=== PATIENT | female | born 1990 | race American Indian/Alaskan Native ===

== ENCOUNTER 2021-07-31 00:32 | Inpatient (IN) | payer SELFPAY ==
--- NOTE | 2021-07-31 01:47 | Emergency Department Report ---
ED Shortness of Breath HPI - General Chief Complaint: Dyspnea/Respdistress Stated Complaint: SOB Time Seen by Provider: 07/31/21 01:43 Source: patient Mode of arrival: Ambulatory Limitations: No Limitations - History of Present Illness Initial Comments: Patient is 31 years old female with no significant past medical history. Patient presented to the ER complaining of shortness of breath and cough and palpitation for the last 3 days. Patient denied any chest pain. She reported chills but no fever. Patient stated that she is not being vaccinated against COVID-19. Complaint: shortness of breath, cough - Related Data Allergies Allergy/AdvReac Type Severity Reaction Status Date / Time No Known Allergies Allergy Unverified 07/31/21 01:39 ED Review of Systems ROS: Stated complaint: SOB Other details as noted in HPI Comment: All other systems reviewed and negative Constitutional: chills. denies: fever Respiratory: cough, shortness of breath, SOB with exertion, SOB at rest. denies: orthopnea, wheezing Cardiovascular: palpitations. denies: chest pain Gastrointestinal: denies: abdominal pain, nausea, vomiting, diarrhea, constipation, hematemesis, melena Musculoskeletal: denies: back pain Neurological: denies: headache, weakness, numbness, paresthesias, confusion, abnormal gait ED Past Medical Hx - Past Medical History Previous Medical History?: No - Surgical History Past Surgical History?: No ED Physical Exam - General Limitations: No Limitations General appearance: alert, in no apparent distress - Head Head exam: Present: atraumatic, normocephalic, normal inspection - Eye Eye exam: Present: normal appearance, PERRL - ENT ENT exam: Present: normal exam, normal orophraynx, mucous membranes moist - Neck Neck exam: Present: normal inspection, full ROM. Absent: tenderness, meningismus - Respiratory Respiratory exam: Present: normal lung sounds bilaterally - Cardiovascular Cardiovascular Exam: Present: regular rate, normal rhythm, normal heart sounds - GI/Abdominal GI/Abdominal exam: Present: soft, normal bowel sounds. Absent: distended, tenderness, guarding, rebound, rigid, organomegaly, mass, bruit, pulsatile mass, hernia - Extremities Exam Extremities exam: Present: normal inspection, full ROM, normal capillary refill. Absent: tenderness - Back Exam Back exam: Present: normal inspection, full ROM. Absent: CVA tenderness (R), CVA tenderness (L) - Neurological Exam Neurological exam: Present: alert, oriented X3, CN II-XII intact, normal gait, reflexes normal. Absent: motor sensory deficit - Psychiatric Psychiatric exam: Present: normal mood - Skin Skin exam: Present: warm, intact, normal color ED Course Vital Signs 07/31/21 07/31/21 01:42 03:13 Temperature 98 F Pulse Rate 95 H Respiratory 18 18 Rate Blood Pressure 117/87 [Right] O2 Sat by Pulse 95 Oximetry - Chest Tube Chest Tube Location: fifth interspace Chest Tube Procedure: betadine prep, sterile drapes applied, sterile dressing applied Anesthesia: 1% Lidocaine [place] of Air [place]: Yes Number of Attempts: 1 Tube Drainage: see nurses notes Tube Sutured to Skin: Yes Post Procedure CXR?: Yes ED Medical Decision Making - Lab Data Result diagrams: 07/31/21 01:49 07/31/21 01:49 - Radiology Data Radiology results: report reviewed - Medical Decision Making Patient is 31 years old female with no significant past medical history. Patient presented to the ER complaining of shortness of breath and cough and palpitation for the last 3 days. Patient denied any chest pain. She reported chills but no fever. Patient stated that she is not being vaccinated against COVID-19. Chest x-ray showed a right-sided tension pneumothorax. I immediately placed chest tube with resolution of the pneumothorax. Patient stated that she is feeling much better. Patient tolerated the procedure well with no complication. I discussed the patient with Dr. Chery, he agreed to admit the patient to medical service. Critical Care Time: Yes Critical care time in (mins) excluding proc time.: 30 Critical care attestation.: If time is entered above; I have spent that time in minutes in the direct care of this critically ill patient, excluding procedure time. ED Disposition Clinical Impression: Tension pneumothorax, spontaneous, Acute chest pain Disposition: ADMITTED INPATIENT Is pt being admited?: Yes Condition: Stable Instructions: Chest Pain (ED)
[2021-07-31 02:12] LABS: Basophils % (Auto) 0.2 % (0.0-1.8); Eosinophils % (Auto) 0.1 % (0.0-4.3); Hematocrit 37.1 % (30.3-42.9); Hemoglobin 12.3 gm/dl (10.1-14.3); Lymphocytes # (Auto) 2.4 K/mm3 (1.2-5.4); Lymphocytes % (Auto) 15.9 % (13.4-35.0); Mean Corpuscular HGB Conc 33 % (30-34); Mean Corpuscular Volume 75 fl (79-97); Monocytes # (Auto) 0.8 K/mm3 (0.0-0.8); Monocytes % (Auto) 5.3 % (0.0-7.3); Platelet Count 413 K/mm3 (140-440); Red Blood Count 4.93 M/mm3 (3.65-5.03); Red Cell Distribution Width 17.9 % (13.2-15.2)
[2021-07-31 02:21] LABS: BUN/Creatinine Ratio 10; Blood Urea Nitrogen 8 mg/dL (7-17); Calcium 9.7 mg/dL (8.4-10.2); Hemolysis Index 0
[2021-07-31] MEDS ORDERED: LORazepam 2 MG/ML VIAL IV ONE (02:59)
[2021-07-31] MEDS ORDERED: MORPHINE 4 MG/1 ML INJ IV ONE (02:59)
[2021-07-31] MEDS ORDERED: ONDANSETRON 4 MG/2 ML INJ IV ONE (02:59)
[2021-07-31] MEDS ORDERED: SODIUM CHLORIDE 0.9% 1000 ML 1,000 ML IV ONE (02:59)
--- NOTE | 2021-07-31 02:59 | XRay Report ---
XR chest routine 2V INDICATION / CLINICAL INFORMATION: SOB. COMPARISON: None available. FINDINGS: SUPPORT DEVICES: None. HEART /PULMONARY VASCULATURE: No significant abnormality. LUNGS / PLEURA: Large right pneumothorax with complete collapse of the right lung. The trachea is min imally deviated to the left, though this is accentuated by patient rotation. ADDITIONAL FINDINGS: No significant additional findings. IMPRESSION: Large right pneumothorax with complete collapse of the right lung. Minimal tracheal deviation to the left is concerning for tension phenomenon. Findings were discussed with Dr. Reddy by phone on 07/31/2021 at 1:54 AM Signer Name: Dany Handley MD Signed: 07/31/2021 2:54 AM Workstation Name: [id number]
[2021-07-31] MEDS ORDERED: LIDOCAINE (2%) 20 MG/1 ML VIAL 20 ML MDV INFILTRATI ONE (03:19)
[2021-07-31 03:50] LABS: INR 1.05 (0.87-1.13)
[2021-07-31] MEDS ORDERED: MIDAZOLAM 5 MG/5 ML INJ MDV IV NR ×2 (04:00)
--- NOTE | 2021-07-31 04:12 | XRay Report ---
XR chest 1V ap INDICATION / CLINICAL INFORMATION: Chest tube placement, pneumothorax. COMPARISON: Radiograph from earlier same day. FINDINGS: SUPPORT DEVICES: Interval placement of right sided chest tube. LUNGS / PLEURA: Significant improvement in right pneumothorax. Tiny right apical pneumothorax remains . There is airspace opacity within the right lung base, may reflect atelectasis, edema, or pneumonia. Signer Name: Dany Handley MD Signed: 07/31/2021 4:08 AM Workstation Name: [id number]
--- NOTE | 2021-07-31 04:49 | History and Physical Report ---
History of Present Illness Date of examination: 07/31/21 Date of admission: 07/31/21 Chief complaint: shortness of breath History of present illness: This is a 31 years old female seen in the ED. She presented to the ER with chief complaint of shortness of breath, cough, and palpitation for the last 3 days. Patient admits shortness of breath, anxiety, but denied chest pain. Patient stated that she is not being vaccinated against COVID-19. Past History Past Medical History: No medical history Past Surgical History: No surgical history Social history: lives with family, full code. denies: smoking, alcohol abuse, prescription drug abuse, IV drug use Family history: no significant family history Medications and Allergies Allergies Allergy/AdvReac Type Severity Reaction Status Date / Time No Known Allergies Allergy Unverified 07/31/21 01:39 Active Meds: Active Medications Midazolam HCl (Midazolam 5 Mg/5 Ml Inj Mdv) 3 mg IV ONCE NR Stop: 07/31/21 23:45 Review of Systems Constitutional: fatigue, weakness Ears, nose, mouth and throat: no epistaxis, no bleeding gums Cardiovascular: rapid/irregular heart beat, shortness of breath Respiratory: shortness of breath, dyspnea on exertion, other (Shortness of breath requiring oxygen) Gastrointestinal: no BRBPR, no melena Rectal: no hemorrhoids Integumentary: no rash, no pruritis Psychiatric: anxiety Hematologic/Lymphatic: no easy bruising, no easy bleeding Exam - Constitutional Vitals: Temp Pulse Resp BP Pulse Ox 98 F 107 H 25 H 133/82 100 07/31/21 01:42 07/31/21 04:15 07/31/21 04:15 07/31/21 04:15 07/31/21 04:00 General appearance: Present: mild distress, well-nourished - EENT Eyes: Present: PERRL ENT: hearing intact, clear oral mucosa - Neck Neck: Present: supple, normal ROM - Respiratory Respiratory effort: normal Respiratory: bilateral: CTA - Cardiovascular Heart Sounds: Present: S1 & S2. Absent: rub, click - Extremities Extremities: pulses symmetrical, No edema Peripheral Pulses: within normal limits - Abdominal General gastrointestinal: Present: soft, non-tender, non-distended, normal bowel sounds Female genitourinary: Present: normal - Integumentary Integumentary: Present: clear, warm, dry - Musculoskeletal Musculoskeletal: gait normal, strength equal bilaterally - Psychiatric Psychiatric: appropriate mood/affect, intact judgment & insight, cooperative - Neurologic Neurologic: CNII-XII intact, moves all extremities - Allied Health Allied health notes reviewed: nursing Results - Labs CBC & Chem 7: 07/31/21 01:49 07/31/21 01:49 Labs: Abnormal lab results 07/31/21 07/31/21 Range/Units 01:49 01:49 WBC 14.9 H (4.5-11.0) K/mm3 MCV 75 L (79-97) fl MCH 25 L (28-32) pg RDW 17.9 H (13.2-15.2) % Seg Neutrophils % 78.5 H (40.0-70.0) % Seg Neutrophils # 11.7 H (1.8-7.7) K/mm3 Sodium 134 L (137-145) mmol/L Carbon Dioxide 21 L (22-30) mmol/L Glucose 106 H (65-100) mg/dL Assessment and Plan - Patient Problems (1) Tension pneumothorax, spontaneous Current Visit: Yes Status: Acute Plan to address problem: Patient came to ED with shortness of breath requiring oxygen Chest x-ray showed large right pneumothorax with complete collapse of the right lung with minimal tracheal deviation to the left. Right chest tube placed-Repeat checks x-ray done post chest tube placement showed a significant improvement in right pneumothorax. And he also showed opacity within the right lung base may reflect atelectasis, edema, or pneumonia. Continue chest tube care, respiratory care, and monitor ABG (2) Acute chest pain Current Visit: Yes Status: Acute Plan to address problem: Acute chest pain secondary to right lung pneumothorax Condition has improved post chest tube placement Pain management as needed (3) Shortness of breath Current Visit: Yes Status: Acute Plan to address problem: Continue respiratory care Bronchodilator and oxygen supplement (4) Acute respiratory failure with hypoxia Current Visit: Yes Status: Acute Plan to address problem: Secondary to pneumothorax/pneumonia Telecasting Engineer consultfollow-up with plan of care Empiric antibiotic and oxygen supplement (5) Pneumonia involving right lung Current Visit: Yes Status: Acute Plan to address problem: Chest x-ray shows right lung opacity/edema Empiric antibiotic Telecasting Engineer is consulted (6) Leukocytosis (leucocytosis) Current Visit: Yes Status: Acute Plan to address problem: monitor WBC Blood culture Continue abx therapy (7) DVT prophylaxis Current Visit: Yes Status: Acute Plan to address problem: Subcutaneous Lovenox
[2021-07-31] MEDS ORDERED: METOCLOPRAMIDE 10 MG/2 ML INJ IV PRN (05:19)
[2021-07-31] MEDS ORDERED: NALOXONE 0.4 MG/1 ML INJ IV PRN (05:19)
[2021-07-31] MEDS ORDERED: ALUM-MAG HYDROXIDE-SIMETHICONE 200-200-20MG/5ML ORAL LIQD 30 ML PO PRN (05:19)
[2021-07-31] MEDS ORDERED: MAGNESIUM HYDROXIDE (MOM) ORAL LIQD UDC PO PRN (05:19)
[2021-07-31] MEDS ORDERED: SENNOSIDES 8.6 MG TAB PO PRN (05:19)
[2021-07-31] MEDS ORDERED: ACETAMINOPHEN 325 MG TAB PO PRN (05:19)
[2021-07-31] MEDS ORDERED: ONDANSETRON 4 MG/2 ML INJ IV PRN (05:19)
--- NOTE | 2021-07-31 07:51 | Progress Note ---
Assessment and Plan Assessment and plan: --Rt. Tension pneumothorax, spontaneous Current Visit: Yes Status: Acute Chest x-ray showed large right pneumothorax with complete collapse of the right lung with minimal tracheal deviation to the left. Right chest tube placed-Repeat checks x-ray post chest tube placement showed a significant improvement in right pneumothorax. opacity within the right lung base may reflect atelectasis, edema, or pneumonia. Continue chest tube on continuous suction, pulmonary following --Acute chest pain Current Visit: Yes Status: Acute Due to right pneumothorax Significantly improved post chest tube placement Supportive care --Acute respiratory failure with hypoxia Current Visit: Yes Status: Acute Present on admission Due to right pneumothorax/pneumonia Slightly improved after chest tube placement Pulmonary consulted --Pneumonia involving right lung Current Visit: Yes Status: Acute Chest x-ray shows right lung opacity/edema/atelectasis Empiric antibiotic, follow cultures --Leukocytosis (leucocytosis) Current Visit: Yes Status: Acute monitor WBC, Blood culture Continue abx therapy -- DVT prophylaxis. Current Visit: Yes Status: Acute Subcutaneous Lovenox Consults and recommendations noted and appreciated We will closely monitor the patient and adjust the management as needed Plan of care reviewed with the patient and her nurse Brief history and daily hospital course: 31-year-old female patient was admitted with acute shortness of breath and chest pain noted to have right-sided tension pneumothorax patient received emergency right-sided chest tube placement connected to continuous suction, post chest tube chest x-ray revealed complete expansion of the lung Patient symptoms significantly improved. 07/31/2021; Patient is alert awake oriented very minimal chest pain no shortness of breath Right-sided chest tube in place on continuous suction, pulmonary following Recommend chest tube underwater seal after 24 hours. Continue empiric antibiotics for atelectasis/pneumonia on the right side Follow cultures History Interval history: I have seen and examined the patient in ER at the bedside awaiting room assignment Patient with right tension pneumothorax s/p chest tube placement under continuous suction Patient feels slightly better, mild shortness of breath and chest pain intermittent No overnight events noted by the nursing Hospitalist Physical - Constitutional Vitals: Temp Pulse Resp BP Pulse Ox 98 F 86 20 118/69 100 07/31/21 01:42 07/31/21 06:15 07/31/21 06:15 07/31/21 06:15 07/31/21 06:15 General appearance: Present: mild distress, well-nourished, other (Right-sided chest tube under continuous suction) - EENT Eyes: Present: PERRL, EOM intact - Neck Neck: Present: supple, normal ROM - Respiratory Respiratory effort: normal Respiratory: bilateral: diminished, negative: rales, rhonchi, wheezing - Cardiovascular Rhythm: regular Heart Sounds: Present: S1 & S2 - Extremities Extremities: no ischemia, No edema - Abdominal General gastrointestinal: soft, non-tender, non-distended, normal bowel sounds - Integumentary Integumentary: Present: clear, warm - Psychiatric Psychiatric: appropriate mood/affect, cooperative - Neurologic Neurologic: CNII-XII intact, moves all extremities Results - Labs CBC & Chem 7: 07/31/21 01:49 07/31/21 01:49 Labs: Laboratory Last Values WBC 14.9 K/mm3 (4.5-11.0) H 07/31/21 01:49 RBC 4.93 M/mm3 (3.65-5.03) 07/31/21 01:49 Hgb 12.3 gm/dl (10.1-14.3) 07/31/21 01:49 Hct 37.1 % (30.3-42.9) 07/31/21 01:49 MCV 75 fl (79-97) L 07/31/21 01:49 MCH 25 pg (28-32) L 07/31/21 01:49 MCHC 33 % (30-34) 07/31/21 01:49 RDW 17.9 % (13.2-15.2) H 07/31/21 01:49 Plt Count 413 K/mm3 (140-440) 07/31/21 01:49 Lymph % (Auto) 15.9 % (13.4-35.0) 07/31/21 01:49 [place] % (Auto) 5.3 % (0.0-7.3) 07/31/21 01:49 Eos % (Auto) 0.1 % (0.0-4.3) 07/31/21 01:49 Baso % (Auto) 0.2 % (0.0-1.8) 07/31/21 01:49 Lymph # (Auto) 2.4 K/mm3 (1.2-5.4) 07/31/21 01:49 [place] # (Auto) 0.8 K/mm3 (0.0-0.8) 07/31/21 01:49 Eos # (Auto) 0.0 K/mm3 (0.0-0.4) 07/31/21 01:49 Baso # (Auto) 0.0 K/mm3 (0.0-0.1) 07/31/21 01:49 Seg Neutrophils % 78.5 % (40.0-70.0) H 07/31/21 01:49 Seg Neutrophils # 11.7 K/mm3 (1.8-7.7) H 07/31/21 01:49 PT 14.2 Sec. (12.2-14.9) 07/31/21 03:19 INR 1.05 (0.87-1.13) 07/31/21 03:19 APTT 30.0 Sec. (24.2-36.6) 07/31/21 03:19 Sodium 134 mmol/L (137-145) L 07/31/21 01:49 Potassium 4.3 mmol/L (3.6-5.0) 07/31/21 01:49 Chloride 98.7 mmol/L (98-107) 07/31/21 01:49 Carbon Dioxide 21 mmol/L (22-30) L 07/31/21 01:49 Anion Gap 19 mmol/L 07/31/21 01:49 BUN 8 mg/dL (7-17) 07/31/21 01:49 Creatinine 0.8 mg/dL (0.6-1.2) 07/31/21 01:49 Estimated GFR > 60 ml/min 07/31/21 01:49 BUN/Creatinine Ratio 10 % 07/31/21 01:49 Glucose 106 mg/dL (65-100) H 07/31/21 01:49 Hemoglobin A1c 5.6 % (4-6) 07/31/21 01:49 Calcium 9.7 mg/dL (8.4-10.2) 07/31/21 01:49 HCG, Qual Negative (Negative) 07/31/21 01:49 Active Medications - Current Medications Current Medications: Generic Name Dose Route Start Last Admin Trade Name Freq PRN Reason Stop Dose Admin Acetaminophen 650 mg 07/31/21 05:19 Acetaminophen 325 Mg Tab PO Q4H PRN Pain MILD(1-3)/Fever >100.5/BOOTHE Al Hydrox/Mg Hydrox/Simethicone 30 ml 07/31/21 05:19 Alum-Mag Hydroxide-Simethicone [phone]/5ml Oral Liqd 30 Ml PO Q4H PRN Indigestion Enoxaparin Sodium 40 mg 07/31/21 10:00 Enoxaparin 40 Mg/0.4 Ml Inj SUB-Q QDAY GEGE Famotidine 20 mg 07/31/21 10:00 Famotidine 20 Mg/2 Ml Inj IV BID GEGE Magnesium Hydroxide 30 ml 07/31/21 05:19 Magnesium Hydroxide (Mom) Oral Liqd Udc PO Q4H PRN Constipation Metoclopramide HCl 10 mg 07/31/21 05:19 Metoclopramide 10 Mg/2 Ml Inj IV Q6H PRN Nausea And Vomiting Midazolam HCl 3 mg 07/31/21 04:00 07/31/21 04:00 Midazolam 5 Mg/5 Ml Inj Mdv IV 07/31/21 23:45 3 mg ONCE NR Administration Morphine Sulfate 2 mg 07/31/21 05:19 Morphine 2 Mg/1 Ml Inj IV Q4H PRN Pain, Moderate (4-6) Naloxone HCl 0.1 mg 07/31/21 05:19 Naloxone 0.4 Mg/1 Ml Inj IV Q2MIN PRN Res Rate </= 8 or 02 SAT < 92% Ondansetron HCl 4 mg 07/31/21 05:19 Ondansetron 4 Mg/2 Ml Inj IV Q8H PRN Nausea And Vomiting Oxycodone/Acetaminophen 1 tab 07/31/21 05:19 Oxycodone /Acetaminophen 5-325mg Tab PO Q6H PRN Pain, Moderate (4-6) Senna 8.6 mg 07/31/21 05:19 Sennosides 8.6 Mg Tab PO Q12HR PRN Constipation Sodium Chloride 10 ml 07/31/21 10:00 Sodium Chloride 0.9% 10 Ml Flush Syringe IV BID [facility]
[2021-07-31] MEDS: ENOXAPARIN 40 MG/0.4 ML INJ SUB-Q SCH (10:16)
[2021-07-31] MEDS: FAMOTIDINE 20 MG/2 ML INJ IV SCH ×3 (10:16→22:33)
--- NOTE | 2021-07-31 11:28 | Event Note ---
Date: 07/31/21 31 y/o [place] female, primary language is sami with 2 days of not being able to sleep or eat with shortness of breath. Denies any trauma, no pain with deep breaths. Per patient has never had PTX before nor has anyone in her family. Denies smoking or vaping. Found to have large right sided PTX with some mediastinal shift. Chest tube placed with full re-expansion on [id number] and continuous suction. Currently on oxygen with sats of 100 and overall feels better. still no exact cause as to why. Plan 1. after 24 hours of suction, place chest tube to water seal (remove suction) and repeat CXR in 4 hours. If lung up, clamp chest tube then repeat CXR in 2-4 hours. If lung remains up, can discontinue chest tube. Suggest obtaining CT of chest to evaluate lung parenchyma if lung remains inflated on water seal or after chest tube has been removed. 1st time spontaneous PTX does not require CT surgery eval but if reoccurs would need consultation.
[2021-07-31 14:09] LABS: Bacteria,Urine 1+ /HPF (Negative); Bilirubin,Urine NEG (Negative); Blood,Urine NEG (Negative); Color,Urine Yellow (Yellow); Mucus,Urine FEW /HPF; Protein,Urine <15 mg/dL mg/dL (Negative); Urobilinogen,Urine < 2.0 mg/dL (<2.0)
[2021-08-01 06:24] LABS: Basophils % (Auto) 0.2 % (0.0-1.8); Eosinophils # (Auto) 0.2 K/mm3 (0.0-0.4); Eosinophils % (Auto) 1.7 % (0.0-4.3); Hemoglobin 11.3 gm/dl (10.1-14.3); Lymphocytes # (Auto) 2.9 K/mm3 (1.2-5.4); Lymphocytes % (Auto) 24.7 % (13.4-35.0); Mean Corpuscular HGB Conc 32 % (30-34); Mean Corpuscular Volume 75 fl (79-97); Monocytes % (Auto) 8.1 % (0.0-7.3); Platelet Count 376 K/mm3 (140-440); Red Blood Count 4.64 M/mm3 (3.65-5.03); Red Cell Distribution Width 17.4 % (13.2-15.2)
[2021-08-01 06:48] LABS: Alanine Aminotransferase 8 units/L (7-56); Albumin 3.9 g/dL (3.9-5); BUN/Creatinine Ratio 15; Blood Urea Nitrogen 12 mg/dL (7-17); Hemolysis Index 4
[2021-08-01] MEDS: ENOXAPARIN 40 MG/0.4 ML INJ SUB-Q SCH (09:31)
[2021-08-01] MEDS: FAMOTIDINE 20 MG/2 ML INJ IV SCH ×2 (09:32→22:21)
--- NOTE | 2021-08-01 10:01 | Progress Note ---
Assessment and Plan Assessment and plan: --Rt. Tension pneumothorax, spontaneous Current Visit: Yes Status: Acute Chest x-ray showed large right pneumothorax with complete collapse of the right lung with minimal tracheal deviation to the left. Right chest tube placed-Repeat checks x-ray post chest tube placement showed a significant improvement in right pneumothorax. opacity within the right lung base may reflect atelectasis, edema, or pneumonia. Continue chest tube on continuous suction, pulmonary following --Acute chest pain Current Visit: Yes Status: Acute Due to right pneumothorax Significantly improved post chest tube placement Supportive care --Acute respiratory failure with hypoxia Current Visit: Yes Status: Acute Present on admission Due to right pneumothorax/pneumonia Slightly improved after chest tube placement Pulmonary consulted --Pneumonia involving right lung Current Visit: Yes Status: Acute Chest x-ray shows right lung opacity/edema/atelectasis Patient also has leukocytosis We will start empiric antibiotics, IV Rocephin and Zithromax Follow cultures --Leukocytosis (leucocytosis) Current Visit: Yes Status: Acute monitor WBC, Blood culture Started abx therapy -- DVT prophylaxis. Current Visit: Yes Status: Acute Subcutaneous Lovenox Consults and recommendations noted and appreciated We will closely monitor the patient and adjust the management as needed Plan of care reviewed with the patient and her nurse Brief history and daily hospital course: 31-year-old female patient was admitted with acute shortness of breath and chest pain noted to have right-sided tension pneumothorax patient received emergency right-sided chest tube placement connected to continuous suction, post chest tube chest x-ray revealed complete expansion of the lung Patient symptoms significantly improved. 07/31/2021; Patient is alert awake oriented very minimal chest pain no shortness of breath Right-sided chest tube in place on continuous suction, pulmonary following Recommend chest tube underwater seal after 24 hours. 08/01/2021; chest tube in place on continuous suction Patient complains of some insomnia, will order some Ambien as needed at night Patient has leukocytosis, opacity on chest x-ray atelectasis/ Will start empiric antibiotic Rocephin and Zithromax, check procalcitonin History Interval history: I have seen and examined the patient this morning at the bedside Patient's chart and medications reviewed Patient feels better complains of some insomnia Vital signs reviewed Hospitalist Physical - Constitutional Vitals: Temp Pulse Resp BP Pulse Ox 98.7 F 82 16 124/79 100 09/22/21 04:28 07/31/21 21:09 08/01/21 04:28 08/01/21 04:28 07/31/21 22:09 General appearance: Present: no acute distress, well-nourished, other (Right- sided chest tube under continuous suction) - EENT Eyes: Present: PERRL, EOM intact - Neck Neck: Present: supple, normal ROM - Respiratory Respiratory effort: normal Respiratory: right: diminished, negative: rales, rhonchi (Chest tube in place) - Cardiovascular Rhythm: regular Heart Sounds: Present: S1 & S2 - Extremities Extremities: no ischemia, No edema - Abdominal General gastrointestinal: soft, non-tender, non-distended, normal bowel sounds - Integumentary Integumentary: Present: clear, warm - Psychiatric Psychiatric: appropriate mood/affect, cooperative - Neurologic Neurologic: moves all extremities Results - Labs CBC & Chem 7: 08/01/21 06:00 08/01/21 06:00 Labs: Laboratory Last Values WBC 11.8 K/mm3 (4.5-11.0) H 08/01/21 06:00 RBC 4.64 M/mm3 (3.65-5.03) 08/01/21 06:00 Hgb 11.3 gm/dl (10.1-14.3) 08/01/21 06:00 Hct 35.0 % (30.3-42.9) 08/01/21 06:00 MCV 75 fl (79-97) L 08/01/21 06:00 MCH 24 pg (28-32) L 08/01/21 06:00 MCHC 32 % (30-34) 08/01/21 06:00 RDW 17.4 % (13.2-15.2) H 08/01/21 06:00 Plt Count 376 K/mm3 (140-440) 08/01/21 06:00 Lymph % (Auto) 24.7 % (13.4-35.0) 08/01/21 06:00 [place] % (Auto) 8.1 % (0.0-7.3) H 08/01/21 06:00 Eos % (Auto) 1.7 % (0.0-4.3) 08/01/21 06:00 Baso % (Auto) 0.2 % (0.0-1.8) 08/01/21 06:00 Lymph # (Auto) 2.9 K/mm3 (1.2-5.4) 08/01/21 06:00 [place] # (Auto) 1.0 K/mm3 (0.0-0.8) H 08/01/21 06:00 Eos # (Auto) 0.2 K/mm3 (0.0-0.4) 08/01/21 06:00 Baso # (Auto) 0.0 K/mm3 (0.0-0.1) 08/01/21 06:00 Seg Neutrophils % 65.3 % (40.0-70.0) 08/01/21 06:00 Seg Neutrophils # 7.7 K/mm3 (1.8-7.7) 08/01/21 06:00 PT 14.2 Sec. (12.2-14.9) 07/31/21 03:19 INR 1.05 (0.87-1.13) 07/31/21 03:19 APTT 30.0 Sec. (24.2-36.6) 07/31/21 03:19 Sodium 140 mmol/L (137-145) 08/01/21 06:00 Potassium 4.0 mmol/L (3.6-5.0) 08/01/21 06:00 Chloride 104.6 mmol/L (98-107) 08/01/21 06:00 Carbon Dioxide 23 mmol/L (22-30) 08/01/21 06:00 Anion Gap 16 mmol/L 08/01/21 06:00 BUN 12 mg/dL (7-17) 08/01/21 06:00 Creatinine 0.8 mg/dL (0.6-1.2) 08/01/21 06:00 Estimated GFR > 60 ml/min 08/01/21 06:00 BUN/Creatinine Ratio 15 % 08/01/21 06:00 Glucose 90 mg/dL (65-100) 08/01/21 06:00 Hemoglobin A1c 5.6 % (4-6) 07/31/21 01:49 Calcium 9.0 mg/dL (8.4-10.2) 08/01/21 06:00 Total Bilirubin 0.30 mg/dL (0.1-1.2) 08/01/21 06:00 AST 13 units/L (5-40) 08/01/21 06:00 ALT 8 units/L (7-56) 08/01/21 06:00 Alkaline Phosphatase 65 units/L (35-129) 08/01/21 06:00 Total Protein 7.8 g/dL (6.3-8.2) 08/01/21 06:00 Albumin 3.9 g/dL (3.9-5) 08/01/21 06:00 Albumin/Globulin Ratio 1.0 % 08/01/21 06:00 HCG, Qual Negative (Negative) 07/31/21 01:49 Urine Color Yellow (Yellow) 07/31/21 Unknown Urine Turbidity Slightly-cloudy (Clear) 07/31/21 Unknown Urine pH 5.0 (5.0-7.0) 07/31/21 Unknown Ur Specific [place] 1.009 (1.003-1.030) 07/31/21 Unknown Urine Protein <15 mg/dl mg/dL (Negative) 07/31/21 Unknown Urine Glucose (UA) Neg mg/dL (Negative) 07/31/21 Unknown Urine Ketones 20 mg/dL (Negative) 07/31/21 Unknown Urine Blood Neg (Negative) 07/31/21 Unknown Urine Nitrite Neg (Negative) 07/31/21 Unknown Urine Bilirubin Neg (Negative) 07/31/21 Unknown Urine Urobilinogen < 2.0 mg/dL (<2.0) 07/31/21 Unknown Ur Leukocyte Esterase Neg (Negative) 07/31/21 Unknown Urine WBC (Auto) 2.0 /HPF (0.0-6.0) 07/31/21 Unknown Urine RBC (Auto) 2.0 /HPF (0.0-6.0) 07/31/21 Unknown U Epithel Cells (Auto) 11.0 /HPF (0-13.0) 07/31/21 Unknown Urine Bacteria (Auto) 1+ /HPF (Negative) 07/31/21 Unknown Urine Mucus Few /HPF 07/31/21 Unknown Microbiology: Microbiology 07/31/21 08:35 Peripheral/Venous Blood Culture - Preliminary NO GROWTH AFTER 24 HOURS 07/31/21 08:35 Peripheral/Venous Blood Culture - Preliminary NO GROWTH AFTER 24 HOURS Active Medications - Current Medications Current Medications: Generic Name Dose Route Start Last Admin Trade Name Freq PRN Reason Stop Dose Admin Acetaminophen 650 mg 07/31/21 05:19 Acetaminophen 325 Mg Tab PO Q4H PRN Pain MILD(1-3)/Fever >100.5/BOOTHE Al Hydrox/Mg Hydrox/Simethicone 30 ml 07/31/21 05:19 Alum-Mag Hydroxide-Simethicone [id number]/5ml Oral Liqd 30 Ml PO Q4H PRN Indigestion Enoxaparin Sodium 40 mg 07/31/21 10:00 08/01/21 09:31 Enoxaparin 40 Mg/0.4 Ml Inj SUB-Q 40 mg QDAY GEGE Administration Famotidine 20 mg 07/31/21 10:00 08/01/21 09:32 Famotidine 20 Mg/2 Ml Inj IV 20 mg BID GEGE Administration Magnesium Hydroxide 30 ml 07/31/21 05:19 Magnesium Hydroxide (Mom) Oral Liqd Udc PO Q4H PRN Constipation Metoclopramide HCl 10 mg 07/31/21 05:19 Metoclopramide 10 Mg/2 Ml Inj IV Q6H PRN Nausea And Vomiting Morphine Sulfate 2 mg 07/31/21 05:19 Morphine 2 Mg/1 Ml Inj IV Q4H PRN Pain, Moderate (4-6) Naloxone HCl 0.1 mg 07/31/21 05:19 Naloxone 0.4 Mg/1 Ml Inj IV Q2MIN PRN Res Rate </= 8 or 02 SAT < 92% Ondansetron HCl 4 mg 07/31/21 05:19 Ondansetron 4 Mg/2 Ml Inj IV Q8H PRN Nausea And Vomiting Oxycodone/Acetaminophen 1 tab 07/31/21 05:19 Oxycodone /Acetaminophen 5-325mg Tab PO Q6H PRN Pain, Moderate (4-6) Senna 8.6 mg 07/31/21 05:19 Sennosides 8.6 Mg Tab PO Q12HR PRN Constipation Sodium Chloride 10 ml 07/31/21 10:00 08/01/21 09:32 Sodium Chloride 0.9% 10 Ml Flush Syringe IV 10 ml BID GEGE Administration
[2021-08-01] MEDS: MORPHINE 2 MG/1 ML INJ IV PRN (10:31)
--- NOTE | 2021-08-01 11:18 | Progress Note ---
Assessment and Plan Ordered stat CXR, if lung is up on water seal, given this is her first PTX, will likely pull as it has been a few hours since I took her off suction. Will need CT of chest prior to discharge. Subjective Date of service: 08/01/21 Interval history: No acute events. Feels good. No air leak seen in chest tube so placed on water seal. No distress noted immediately. Objective - Constitutional Vitals: Vital Signs - 12hr 08/01/21 04:28 Temperature 98.7 F Respiratory 16 Rate Blood Pressure 124/79 - Labs CBC & Chem 7: 08/01/21 06:00 08/01/21 06:00 Labs: Abnormal lab results 08/01/21 Range/Units 06:00 WBC 11.8 H (4.5-11.0) K/mm3 MCV 75 L (79-97) fl MCH 24 L (28-32) pg RDW 17.4 H (13.2-15.2) % [place] % (Auto) 8.1 H (0.0-7.3) % [place] # (Auto) 1.0 H (0.0-0.8) K/mm3 Medications & Allergies - Medications Allergies/Adverse Reactions: Allergies No Known Allergies Allergy (Unverified 07/31/21 01:39) Active Medications: Generic Name Dose Route Start Last Admin Trade Name Freq PRN Reason Stop Dose Admin Acetaminophen 650 mg 07/31/21 05:19 Acetaminophen 325 Mg Tab PO Q4H PRN Pain MILD(1-3)/Fever >100.5/BOOTHE Al Hydrox/Mg Hydrox/Simethicone 30 ml 07/31/21 05:19 Alum-Mag Hydroxide-Simethicone [phone]/5ml Oral Liqd 30 Ml PO Q4H PRN Indigestion Enoxaparin Sodium 40 mg 07/31/21 10:00 08/01/21 09:31 Enoxaparin 40 Mg/0.4 Ml Inj SUB-Q 40 mg QDAY GEGE Administration Famotidine 20 mg 07/31/21 10:00 08/01/21 09:32 Famotidine 20 Mg/2 Ml Inj IV 20 mg BID GEGE Administration Magnesium Hydroxide 30 ml 07/31/21 05:19 Magnesium Hydroxide (Mom) Oral Liqd Udc PO Q4H PRN Constipation Metoclopramide HCl 10 mg 07/31/21 05:19 Metoclopramide 10 Mg/2 Ml Inj IV Q6H PRN Nausea And Vomiting Morphine Sulfate 2 mg 07/31/21 05:19 08/01/21 10:31 Morphine 2 Mg/1 Ml Inj IV 2 mg Q4H PRN Administration Pain, Moderate (4-6) Naloxone HCl 0.1 mg 07/31/21 05:19 Naloxone 0.4 Mg/1 Ml Inj IV Q2MIN PRN Res Rate </= 8 or 02 SAT < 92% Ondansetron HCl 4 mg 07/31/21 05:19 Ondansetron 4 Mg/2 Ml Inj IV Q8H PRN Nausea And Vomiting Oxycodone/Acetaminophen 1 tab 07/31/21 05:19 Oxycodone /Acetaminophen 5-325mg Tab PO Q6H PRN Pain, Moderate (4-6) Senna 8.6 mg 07/31/21 05:19 Sennosides 8.6 Mg Tab PO Q12HR PRN Constipation Sodium Chloride 10 ml 07/31/21 10:00 08/01/21 09:32 Sodium Chloride 0.9% 10 Ml Flush Syringe IV 10 ml BID GEGE Administration Zolpidem Tartrate 5 mg 08/01/21 21:00 Zolpidem 5 Mg Tab PO QHS PRN Sleep
--- NOTE | 2021-08-01 11:57 | XRay Report ---
CHEST 1 VIEW INDICATION: right sided pneumo, now on waterseal. COMPARISON: 07/31/2020 FINDINGS: Support devices: Right Heimlich chest tube remains in similar position. Heart: Within normal limits. Lungs/Pleura: A large right pneumothorax has reaccumulated while on waterseal. Right pneumothorax is estimated at least 50%. The left lung remains generally clear. Additional findings: None. IMPRESSION: Large right pneumothorax as described. CRITICAL RESULT: Time of Discovery (PUBLIC ADDRESS SYSTEM INSTALLER/CDT): 1049 hours Time of Communication (PUBLIC ADDRESS SYSTEM INSTALLER/CDT): 1051 hours Licensed Practitioner Receiving Report: JOLYNN Price Read-Back Performed: Yes. Signer Name: Tyshawn Chaudhary Jr, MD Signed: 08/01/2021 11:52 AM Workstation Name: [id number]
--- NOTE | 2021-08-01 13:44 | Event Note ---
Date: 08/01/21 Chest tube was placed on water seal by rehab director, follow-up chest x-ray right-sided pneumothorax 50%. I discussed with Dr. Snyder[pulmonary], advised to attach it back to continuous suction. Informed the nurse, will closely monitor, Patient is hemodynamically stable. Not in distress We will get follow-up x-ray after 2 to 3 hours to monitor the improvement
[2021-08-01] MEDS: cefTRIAXone/NS 2 GM/100 ML 2 GM/100 ML BAG IV SCH (14:34)
[2021-08-01] MEDS: AZITHROMYCIN/NS 500 MG/250 ML 500 MG/250 ML BAG IV SCH (14:34)
--- NOTE | 2021-08-01 16:35 | XRay Report ---
CHEST 1 VIEW 4:17 PM INDICATION: chest tube view. COMPARISON: Earlier today. FINDINGS: Support devices: Right chest tubes do not appear significantly changed. Heart: Stable. Lungs/Pleura: No residual right pneumothorax is seen. There is mild atelectasis versus reexpansion pu lmonary edema in the right lung base. IMPRESSION: 1. No residual right pneumothorax. Signer Name: Emil Sheridan MD Signed: 08/01/2021 4:31 PM Workstation Name: [id number]
[2021-08-01] MEDS: ZOLPIDEM 5 MG TAB PO PRN (22:20)
--- NOTE | 2021-08-02 07:57 | Progress Note ---
Assessment and Plan COntinue suction for 24 more hours and the reassess on water seal. Hold on CT of chest for right now as clearly lung won't stay up. If fails water seal on the next try, will need Thoracic Surgery consult which would require transfer. Subjective Date of service: 08/02/21 Interval history: Nanci did not remain expanded post change to water seal on yesterday. After placing back on suction lung re-expanded fully. Objective Vital Signs - 12hr 08/01/21 08/01/21 08/02/21 21:22 22:20 02:00 Temperature 99.4 F Pulse Rate 87 90 Respiratory 18 Rate Blood Pressure 106/68 O2 Sat by Pulse 99 99 Oximetry 08/02/21 05:16 Temperature 97.9 F Pulse Rate 94 H Respiratory 18 Rate Blood Pressure 107/73 O2 Sat by Pulse 100 Oximetry CBC and BMP: 08/01/21 06:00 08/01/21 06:00 ABG, PT/INR, D-dimer: PT/INR, D-dimer PT 14.2 Sec. (12.2-14.9) 07/31/21 03:19 INR 1.05 (0.87-1.13) 07/31/21 03:19 Abnormal lab findings: Abnormal Labs 07/31/21 07/31/21 08/01/21 01:49 01:49 06:00 WBC 14.9 H 11.8 H MCV 75 L 75 L MCH 25 L 24 L RDW 17.9 H 17.4 H [place] % (Auto) 8.1 H [place] # (Auto) 1.0 H Seg Neutrophils % 78.5 H Seg Neutrophils # 11.7 H Sodium 134 L Carbon Dioxide 21 L Glucose 106 H
--- NOTE | 2021-08-02 09:40 | Progress Note ---
Assessment and Plan Assessment and plan: Yesterday afternoon patient's chest tube was briefly connected to underwater seal, however repeat chest x-ray showed right pneumothoraxChanged back to continuous suction, follow-up chest x-ray showed complete expansion of the lung,Pulmonary following Today chest tube is on continuous suction, patient feels better --Rt. Tension pneumothorax, spontaneous Current Visit: Yes Status: Acute Right chest tube on continuous suction today Patient feels better, pulmonary following, supportive care --Acute chest pain Current Visit: Yes Status: Acute Due to right pneumothorax Significantly improved post chest tube placement Supportive care --Acute respiratory failure with hypoxia Current Visit: Yes Status: Acute Present on admission Due to right pneumothorax/pneumonia Symptoms significantly improved --Pneumonia involving right lung Current Visit: Yes Status: Acute Chest x-ray shows right lung opacity/edema/atelectasis Patient also has leukocytosis We will start empiric antibiotics, IV Rocephin and Zithromax Follow cultures --Leukocytosis (leucocytosis) Current Visit: Yes Status: Acute monitor WBC, Blood culture Started abx therapy -- DVT prophylaxis. Current Visit: Yes Status: Acute Subcutaneous Lovenox Consults and recommendations noted and appreciated We will closely monitor the patient and adjust the management as needed Plan of care reviewed with the patient and her nurse Brief history and daily hospital course: 31-year-old female patient was admitted with acute shortness of breath and chest pain noted to have right-sided tension pneumothorax patient received emergency right-sided chest tube placement connected to continuous suction, post chest tube chest x-ray revealed complete expansion of the lung Patient symptoms significantly improved. 07/31/2021; Patient is alert awake oriented very minimal chest pain no shortness of breath Right-sided chest tube in place on continuous suction, pulmonary following Recommend chest tube underwater seal after 24 hours. 08/01/2021; chest tube in place on continuous suction Patient complains of some insomnia, will order some Ambien as needed at night Patient has leukocytosis, opacity on chest x-ray atelectasis/ Will start empiric antibiotic Rocephin and Zithromax, check procalcitonin 08/02/2021; chest tube in place continuous suction Pulmonary following History Interval history: Patient seen and examined the patient at the bedside Patient's chart and medications reviewed Chest tube in place with continuous suction Patient has no new complaints Hospitalist Physical - Constitutional Vitals: Temp Pulse Resp BP Pulse Ox 97.9 F 94 H 18 107/73 100 08/02/21 05:16 08/02/21 05:16 08/02/21 05:16 08/02/21 05:16 08/02/21 05:16 General appearance: Present: no acute distress, well-nourished, other (Right- sided chest tube under continuous suction) - EENT Eyes: Present: PERRL, EOM intact - Neck Neck: Present: supple, normal ROM - Respiratory Respiratory effort: normal Respiratory: bilateral: diminished, negative: rales, rhonchi, wheezing - Cardiovascular Rhythm: regular Heart Sounds: Present: S1 & S2 - Extremities Extremities: no ischemia, No edema - Abdominal General gastrointestinal: soft, non-tender, non-distended - Integumentary Integumentary: Present: clear, warm - Psychiatric Psychiatric: appropriate mood/affect, cooperative - Neurologic Neurologic: moves all extremities Results - Labs CBC & Chem 7: 08/01/21 06:00 08/01/21 06:00 Labs: Laboratory Last Values WBC 11.8 K/mm3 (4.5-11.0) H 08/01/21 06:00 RBC 4.64 M/mm3 (3.65-5.03) 08/01/21 06:00 Hgb 11.3 gm/dl (10.1-14.3) 08/01/21 06:00 Hct 35.0 % (30.3-42.9) 08/01/21 06:00 MCV 75 fl (79-97) L 08/01/21 06:00 MCH 24 pg (28-32) L 08/01/21 06:00 MCHC 32 % (30-34) 08/01/21 06:00 RDW 17.4 % (13.2-15.2) H 08/01/21 06:00 Plt Count 376 K/mm3 (140-440) 08/01/21 06:00 Lymph % (Auto) 24.7 % (13.4-35.0) 08/01/21 06:00 [place] % (Auto) 8.1 % (0.0-7.3) H 08/01/21 06:00 Eos % (Auto) 1.7 % (0.0-4.3) 08/01/21 06:00 Baso % (Auto) 0.2 % (0.0-1.8) 08/01/21 06:00 Lymph # (Auto) 2.9 K/mm3 (1.2-5.4) 08/01/21 06:00 [place] # (Auto) 1.0 K/mm3 (0.0-0.8) H 08/01/21 06:00 Eos # (Auto) 0.2 K/mm3 (0.0-0.4) 08/01/21 06:00 Baso # (Auto) 0.0 K/mm3 (0.0-0.1) 08/01/21 06:00 Seg Neutrophils % 65.3 % (40.0-70.0) 08/01/21 06:00 Seg Neutrophils # 7.7 K/mm3 (1.8-7.7) 08/01/21 06:00 PT 14.2 Sec. (12.2-14.9) 07/31/21 03:19 INR 1.05 (0.87-1.13) 07/31/21 03:19 APTT 30.0 Sec. (24.2-36.6) 07/31/21 03:19 Sodium 140 mmol/L (137-145) 08/01/21 06:00 Potassium 4.0 mmol/L (3.6-5.0) 08/01/21 06:00 Chloride 104.6 mmol/L (98-107) 08/01/21 06:00 Carbon Dioxide 23 mmol/L (22-30) 08/01/21 06:00 Anion Gap 16 mmol/L 08/01/21 06:00 BUN 12 mg/dL (7-17) 08/01/21 06:00 Creatinine 0.8 mg/dL (0.6-1.2) 08/01/21 06:00 Estimated GFR > 60 ml/min 08/01/21 06:00 BUN/Creatinine Ratio 15 % 08/01/21 06:00 Glucose 90 mg/dL (65-100) 08/01/21 06:00 Hemoglobin A1c 5.6 % (4-6) 07/31/21 01:49 Calcium 9.0 mg/dL (8.4-10.2) 08/01/21 06:00 Total Bilirubin 0.30 mg/dL (0.1-1.2) 08/01/21 06:00 AST 13 units/L (5-40) 08/01/21 06:00 ALT 8 units/L (7-56) 08/01/21 06:00 Alkaline Phosphatase 65 units/L (35-129) 08/01/21 06:00 Total Protein 7.8 g/dL (6.3-8.2) 08/01/21 06:00 Albumin 3.9 g/dL (3.9-5) 08/01/21 06:00 Albumin/Globulin Ratio 1.0 % 08/01/21 06:00 HCG, Qual Negative (Negative) 07/31/21 01:49 Urine Color Yellow (Yellow) 07/31/21 Unknown Urine Turbidity Slightly-cloudy (Clear) 07/31/21 Unknown Urine pH 5.0 (5.0-7.0) 07/31/21 Unknown Ur Specific [place] 1.009 (1.003-1.030) 07/31/21 Unknown Urine Protein <15 mg/dl mg/dL (Negative) 07/31/21 Unknown Urine Glucose (UA) Neg mg/dL (Negative) 07/31/21 Unknown Urine Ketones 20 mg/dL (Negative) 07/31/21 Unknown Urine Blood Neg (Negative) 07/31/21 Unknown Urine Nitrite Neg (Negative) 07/31/21 Unknown Urine Bilirubin Neg (Negative) 07/31/21 Unknown Urine Urobilinogen < 2.0 mg/dL (<2.0) 07/31/21 Unknown Ur Leukocyte Esterase Neg (Negative) 07/31/21 Unknown Urine WBC (Auto) 2.0 /HPF (0.0-6.0) 07/31/21 Unknown Urine RBC (Auto) 2.0 /HPF (0.0-6.0) 07/31/21 Unknown U Epithel Cells (Auto) 11.0 /HPF (0-13.0) 07/31/21 Unknown Urine Bacteria (Auto) 1+ /HPF (Negative) 07/31/21 Unknown Urine Mucus Few /HPF 07/31/21 Unknown Microbiology: Microbiology 07/31/21 08:35 Peripheral/Venous Blood Culture - Preliminary NO GROWTH AFTER 48 HOURS 07/31/21 08:35 Peripheral/Venous Blood Culture - Preliminary NO GROWTH AFTER 48 HOURS Green/IV: Voiding Method Toilet Active Medications - Current Medications Current Medications: Generic Name Dose Route Start Last Admin Trade Name Freq PRN Reason Stop Dose Admin Acetaminophen 650 mg 07/31/21 05:19 Acetaminophen 325 Mg Tab PO Q4H PRN Pain MILD(1-3)/Fever >100.5/BOOTHE Al Hydrox/Mg Hydrox/Simethicone 30 ml 07/31/21 05:19 Alum-Mag Hydroxide-Simethicone [id number]/5ml Oral Liqd 30 Ml PO Q4H PRN Indigestion Enoxaparin Sodium 40 mg 07/31/21 10:00 08/01/21 09:31 Enoxaparin 40 Mg/0.4 Ml Inj SUB-Q 40 mg QDAY GEGE Administration Famotidine 20 mg 07/31/21 10:00 08/01/21 22:21 Famotidine 20 Mg/2 Ml Inj IV 20 mg BID GEGE Administration Ceftriaxone Sodium 2 gm in 100 mls @ 200 mls/hr 08/01/21 14:00 08/01/21 16:53 Rocephin/Ns 2 Gm/100 Ml IV Infused Q24H GEGE Infusion Protocol Azithromycin 500 mg in 250 mls @ 250 mls/hr 08/01/21 14:00 08/01/21 16:53 Zithromax/Ns IV 08/05/21 14:59 Infused Q24H GEGE Infusion Magnesium Hydroxide 30 ml 07/31/21 05:19 Magnesium Hydroxide (Mom) Oral Liqd Udc PO Q4H PRN Constipation Metoclopramide HCl 10 mg 07/31/21 05:19 Metoclopramide 10 Mg/2 Ml Inj IV Q6H PRN Nausea And Vomiting Morphine Sulfate 2 mg 07/31/21 05:19 08/01/21 10:31 Morphine 2 Mg/1 Ml Inj IV 2 mg Q4H PRN Administration Pain, Moderate (4-6) Naloxone HCl 0.1 mg 07/31/21 05:19 Naloxone 0.4 Mg/1 Ml Inj IV Q2MIN PRN Res Rate </= 8 or 02 SAT < 92% Ondansetron HCl 4 mg 07/31/21 05:19 Ondansetron 4 Mg/2 Ml Inj IV Q8H PRN Nausea And Vomiting Oxycodone/Acetaminophen 1 tab 07/31/21 05:19 Oxycodone /Acetaminophen 5-325mg Tab PO Q6H PRN Pain, Moderate (4-6) Senna 8.6 mg 07/31/21 05:19 Sennosides 8.6 Mg Tab PO Q12HR PRN Constipation Sodium Chloride 10 ml 07/31/21 10:00 08/01/21 22:21 Sodium Chloride 0.9% 10 Ml Flush Syringe IV 10 ml BID GEGE Administration Zolpidem Tartrate 5 mg 08/01/21 21:00 08/01/21 22:20 Zolpidem 5 Mg Tab PO 5 mg QHS PRN Administration Sleep Nutrition/Malnutrition Assess - Dietary Evaluation Nutrition/Malnutrition Findings: Nutrition Notes Start: 08/01/21 10:31 Freq: Status: Active Protocol: Document 08/01/21 10:31 (Rec: 08/01/21 10:36 [id number]) Nutrition Notes Need for Assessment generated from: radiology receptionist Initial or Follow up Assessment Current Diagnosis Respiratory Failure Other Pertinent Diagnosis tension pneumothorax, chest pain, SOB, pneu Current Diet regular Labs/Tests reviewed Pertinent Medications reviewed Height 5 ft 9 in Weight 79.37 kg [place] Body Weight (kg) 65.90 BMI 25.8 Weight Status Overweight Subjective/Other Information RN screen for skin risk. Pt with chest tube. Pt is unsure of recent wt or wt loss. Pt ate a small bit of breakfast. She reports she has been eating less recently. Burn Absent Trauma Absent Minimum of two criteria No #1 Nutrition Diagnosis Inadequate oral intake Etiology acute illness As Evidenced by Signs and Symptoms pt eating <25% of meals Is patient on ventilator? No Is Patient Ambulatory and/or Out of Bed No REE-([facility]-confined to bed) 1854.716 Calculation Used for Recommendations [facility] Additional Notes Protein: (0.8-1g/kg) 63-79g Fluid: 1 ml/kcal or per MD Nutrition Intervention Change Diet Order: continue Add Supplement/Snack (indicate name/kcal Ensure Enlive BID /protein ) Provides kCal: 700 Provides Protein (gm) 40 Goal #1 Meet at least 75% of protein and kcal needs via PO and ONS intakes Anticipated Discharge Needs: regular Follow-Up By: 08/03/21 Additional Comments F/u: intakes and ONS tolerance
[2021-08-02] MEDS: ENOXAPARIN 40 MG/0.4 ML INJ SUB-Q SCH (09:51)
[2021-08-02] MEDS: FAMOTIDINE 20 MG/2 ML INJ IV SCH ×2 (09:51→22:29)
[2021-08-02] MEDS: AZITHROMYCIN/NS 500 MG/250 ML 500 MG/250 ML BAG IV SCH (14:30)
[2021-08-02] MEDS: cefTRIAXone/NS 2 GM/100 ML 2 GM/100 ML BAG IV SCH (14:31)
[2021-08-02] MEDS: ZOLPIDEM 5 MG TAB PO PRN (22:31)
[2021-08-03] MEDS: oxyCODONE /ACETAMINOPHEN 5-325MG TAB PO PRN ×2 (01:02→15:56)
--- NOTE | 2021-08-03 10:42 | XRay Report ---
CHEST 1 VIEW INDICATION: Follow-up pneumothorax. COMPARISON: 08/01/2021 FINDINGS: SUPPORT DEVICES: Right lateral/basilar chest tube again noted although the tip is now directed toward s cranially instead of towards the hilum. A small right-sided pneumothorax has redeveloped. HEART: Within normal limits. LUNGS/PLEURA: Minimal patchy right basilar airspace disease is present, likely at least in part atele ctasis. ADDITIONAL FINDINGS: None. IMPRESSION: 1. Small right-sided pneumothorax has redeveloped since the previous exam. Signer Name: Fahad Damon MD Signed: 08/03/2021 10:38 AM Workstation Name: [id number]
--- NOTE | 2021-08-03 11:22 | Progress Note ---
Assessment and Plan 08/03/21 Not sure if was adequately on for 24 hours. I have now changed to continuous suction and this should maintain through the weekend. (I am here so will check it). No repeat imaging over the weekend is needed while on suction unless there is a clinical change. Friday, I will come and take of suction and order CXR to see where lung is but I suggest putting at least the request in now for transfer to an institution with thoracic surgery as she will likely need VATs and mechanical pleurodesis if lung does not stay up after about 60+ hours of continuous suction. COntinue suction for 24 more hours and the reassess on water seal. Hold on CT of chest for right now as clearly lung won't stay up. If fails water seal on the next try, will need Thoracic Surgery consult which would require transfer. Subjective Date of service: 08/03/21 Interval history: Suction was on intermittent and not continuous when film shot earlier this morning. PTX was present, not as large as admission. Patient not in distress. Still wearing oxygen and mask. Objective Vital Signs - 12hr 08/02/21 08/03/21 23:57 06:18 Temperature 98.7 F 98.9 F Pulse Rate 90 85 Respiratory 20 20 Rate Blood Pressure 125/71 117/72 O2 Sat by Pulse 97 100 Oximetry CBC and BMP: 08/01/21 06:00 08/01/21 06:00 ABG, PT/INR, D-dimer: PT/INR, D-dimer PT 14.2 Sec. (12.2-14.9) 07/31/21 03:19 INR 1.05 (0.87-1.13) 07/31/21 03:19 Abnormal lab findings: Abnormal Labs 07/31/21 07/31/21 08/01/21 01:49 01:49 06:00 WBC 14.9 H 11.8 H MCV 75 L 75 L MCH 25 L 24 L RDW 17.9 H 17.4 H [place] % (Auto) 8.1 H [place] # (Auto) 1.0 H Seg Neutrophils % 78.5 H Seg Neutrophils # 11.7 H Sodium 134 L Carbon Dioxide 21 L Glucose 106 H
[2021-08-03] MEDS: ENOXAPARIN 40 MG/0.4 ML INJ SUB-Q SCH (12:16)
[2021-08-03] MEDS: FAMOTIDINE 20 MG/2 ML INJ IV SCH (12:16)
--- NOTE | 2021-08-03 12:32 | Progress Note ---
Assessment and Plan Assessment and plan: --Rt. Tension pneumothorax, spontaneous Current Visit: Yes Status: Acute Right chest tube on continuous suction today Patient feels better, no new complaints Management per pulmonary On 08/01/2021 afternoon patient's chest tube was briefly connected to underwater seal, f/u chest x-ray showed right pneumothorax, pulmonary changed back to continuous suction, Repeat chest x-ray showed complete expansion of the lung,Pulmonary following Today chest tube is on continuous suction, patient feels better --Acute chest pain Current Visit: Yes Status: Acute Due to right pneumothorax Significantly improved post chest tube placement Supportive care --Acute respiratory failure with hypoxia Current Visit: Yes Status: Acute Present on admission Due to right pneumothorax/pneumonia Symptoms significantly improved --Pneumonia involving right lung Current Visit: Yes Status: Acute Chest x-ray shows right lung opacity/edema/atelectasis Patient also has leukocytosis We will start empiric antibiotics, IV Rocephin and Zithromax Follow cultures --Leukocytosis (leucocytosis) Current Visit: Yes Status: Acute monitor WBC, Blood culture Started abx therapy -- DVT prophylaxis. Current Visit: Yes Status: Acute Subcutaneous Lovenox Consults and recommendations noted and appreciated We will closely monitor the patient and adjust the management as needed Plan of care reviewed with the patient and her nurse Brief history and daily hospital course: 31-year-old female patient was admitted with acute shortness of breath and chest pain noted to have right-sided tension pneumothorax patient received emergency right-sided chest tube placement connected to continuous suction, post chest tube chest x-ray revealed complete expansion of the lung Patient symptoms significantly improved. 07/31/2021; Patient is alert awake oriented very minimal chest pain no shortness of breath Right-sided chest tube in place on continuous suction, pulmonary following Recommend chest tube underwater seal after 24 hours. 08/01/2021; chest tube in place on continuous suction Patient complains of some insomnia, will order some Ambien as needed at night Patient has leukocytosis, opacity on chest x-ray atelectasis/ Will start empiric antibiotic Rocephin and Zithromax, check procalcitonin 08/02/2021; chest tube in place continuous suction Pulmonary following 08/03/2021; patient feels better, chest tube continues suction Chest x-ray requested History Interval history: I have seen and examined the patient at the bedside Patient's chart and medications reviewed Patient feels slightly better Has right sided chest tube on continuous suction No new overnight events reported by the nursing staff Hospitalist Physical - Constitutional Vitals: Temp Pulse Resp BP Pulse Ox 98.9 F 85 20 117/72 100 08/03/21 06:18 08/03/21 06:18 08/03/21 06:18 08/03/21 06:18 08/03/21 06:18 General appearance: Present: no acute distress, well-nourished, other (Right- sided chest tube under continuous suction) - EENT Eyes: Present: PERRL, EOM intact - Neck Neck: Present: supple, normal ROM - Respiratory Respiratory effort: normal Respiratory: bilateral: diminished, negative: rales, rhonchi, wheezing - Cardiovascular Rhythm: regular Heart Sounds: Present: S1 & S2 - Extremities Extremities: no ischemia, No edema - Abdominal General gastrointestinal: soft, non-tender, non-distended, normal bowel sounds - Integumentary Integumentary: Present: clear, warm - Psychiatric Psychiatric: appropriate mood/affect, cooperative - Neurologic Neurologic: CNII-XII intact, moves all extremities Results - Labs CBC & Chem 7: 08/01/21 06:00 08/01/21 06:00 Labs: Laboratory Last Values WBC 11.8 K/mm3 (4.5-11.0) H 08/01/21 06:00 RBC 4.64 M/mm3 (3.65-5.03) 08/01/21 06:00 Hgb 11.3 gm/dl (10.1-14.3) 08/01/21 06:00 Hct 35.0 % (30.3-42.9) 08/01/21 06:00 MCV 75 fl (79-97) L 08/01/21 06:00 MCH 24 pg (28-32) L 08/01/21 06:00 MCHC 32 % (30-34) 08/01/21 06:00 RDW 17.4 % (13.2-15.2) H 08/01/21 06:00 Plt Count 376 K/mm3 (140-440) 08/01/21 06:00 Lymph % (Auto) 24.7 % (13.4-35.0) 08/01/21 06:00 [place] % (Auto) 8.1 % (0.0-7.3) H 08/01/21 06:00 Eos % (Auto) 1.7 % (0.0-4.3) 08/01/21 06:00 Baso % (Auto) 0.2 % (0.0-1.8) 08/01/21 06:00 Lymph # (Auto) 2.9 K/mm3 (1.2-5.4) 08/01/21 06:00 [place] # (Auto) 1.0 K/mm3 (0.0-0.8) H 08/01/21 06:00 Eos # (Auto) 0.2 K/mm3 (0.0-0.4) 08/01/21 06:00 Baso # (Auto) 0.0 K/mm3 (0.0-0.1) 08/01/21 06:00 Seg Neutrophils % 65.3 % (40.0-70.0) 08/01/21 06:00 Seg Neutrophils # 7.7 K/mm3 (1.8-7.7) 08/01/21 06:00 PT 14.2 Sec. (12.2-14.9) 07/31/21 03:19 INR 1.05 (0.87-1.13) 07/31/21 03:19 APTT 30.0 Sec. (24.2-36.6) 07/31/21 03:19 Sodium 140 mmol/L (137-145) 08/01/21 06:00 Potassium 4.0 mmol/L (3.6-5.0) 08/01/21 06:00 Chloride 104.6 mmol/L (98-107) 08/01/21 06:00 Carbon Dioxide 23 mmol/L (22-30) 08/01/21 06:00 Anion Gap 16 mmol/L 08/01/21 06:00 BUN 12 mg/dL (7-17) 08/01/21 06:00 Creatinine 0.8 mg/dL (0.6-1.2) 08/01/21 06:00 Estimated GFR > 60 ml/min 08/01/21 06:00 BUN/Creatinine Ratio 15 % 08/01/21 06:00 Glucose 90 mg/dL (65-100) 08/01/21 06:00 Hemoglobin A1c 5.6 % (4-6) 07/31/21 01:49 Calcium 9.0 mg/dL (8.4-10.2) 08/01/21 06:00 Total Bilirubin 0.30 mg/dL (0.1-1.2) 08/01/21 06:00 AST 13 units/L (5-40) 08/01/21 06:00 ALT 8 units/L (7-56) 08/01/21 06:00 Alkaline Phosphatase 65 units/L (35-129) 08/01/21 06:00 Total Protein 7.8 g/dL (6.3-8.2) 08/01/21 06:00 Albumin 3.9 g/dL (3.9-5) 08/01/21 06:00 Albumin/Globulin Ratio 1.0 % 08/01/21 06:00 HCG, Qual Negative (Negative) 07/31/21 01:49 Urine Color Yellow (Yellow) 07/31/21 Unknown Urine Turbidity Slightly-cloudy (Clear) 07/31/21 Unknown Urine pH 5.0 (5.0-7.0) 07/31/21 Unknown Ur Specific [place] 1.009 (1.003-1.030) 07/31/21 Unknown Urine Protein <15 mg/dl mg/dL (Negative) 07/31/21 Unknown Urine Glucose (UA) Neg mg/dL (Negative) 07/31/21 Unknown Urine Ketones 20 mg/dL (Negative) 07/31/21 Unknown Urine Blood Neg (Negative) 07/31/21 Unknown Urine Nitrite Neg (Negative) 07/31/21 Unknown Urine Bilirubin Neg (Negative) 07/31/21 Unknown Urine Urobilinogen < 2.0 mg/dL (<2.0) 07/31/21 Unknown Ur Leukocyte Esterase Neg (Negative) 07/31/21 Unknown Urine WBC (Auto) 2.0 /HPF (0.0-6.0) 07/31/21 Unknown Urine RBC (Auto) 2.0 /HPF (0.0-6.0) 07/31/21 Unknown U Epithel Cells (Auto) 11.0 /HPF (0-13.0) 07/31/21 Unknown Urine Bacteria (Auto) 1+ /HPF (Negative) 07/31/21 Unknown Urine Mucus Few /HPF 07/31/21 Unknown Microbiology: Microbiology 08/01/21 Unknown Urine,Clean Catch Urine Culture - Preliminary 07/31/21 08:35 Peripheral/Venous Blood Culture - Preliminary NO GROWTH AFTER 72 HOURS 07/31/21 08:35 Peripheral/Venous Blood Culture - Preliminary NO GROWTH AFTER 72 HOURS Green/IV: Voiding Method Toilet Active Medications - Current Medications Current Medications: Generic Name Dose Route Start Last Admin Trade Name Freq PRN Reason Stop Dose Admin Acetaminophen 650 mg 07/31/21 05:19 Acetaminophen 325 Mg Tab PO Q4H PRN Pain MILD(1-3)/Fever >100.5/BOOTHE Al Hydrox/Mg Hydrox/Simethicone 30 ml 07/31/21 05:19 Alum-Mag Hydroxide-Simethicone 135-803-40ha/5ml Oral Liqd 30 Ml PO Q4H PRN Indigestion Enoxaparin Sodium 40 mg 07/31/21 10:00 08/03/21 12:16 Enoxaparin 40 Mg/0.4 Ml Inj SUB-Q 40 mg QDAY GEGE Administration Famotidine 20 mg 07/31/21 10:00 08/03/21 12:16 Famotidine 20 Mg/2 Ml Inj IV 20 mg BID GEGE Administration Ceftriaxone Sodium 2 gm in 100 mls @ 200 mls/hr 08/01/21 14:00 08/02/21 14:31 Rocephin/Ns 2 Gm/100 Ml IV 08/05/21 14:29 200 mls/hr Q24H GEGE Administration Protocol Azithromycin 500 mg in 250 mls @ 250 mls/hr 08/01/21 14:00 08/02/21 14:30 Zithromax/Ns IV 08/05/21 14:59 250 mls/hr Q24H GEGE Administration Magnesium Hydroxide 30 ml 07/31/21 05:19 Magnesium Hydroxide (Mom) Oral Liqd Udc PO Q4H PRN Constipation Metoclopramide HCl 10 mg 07/31/21 05:19 Metoclopramide 10 Mg/2 Ml Inj IV Q6H PRN Nausea And Vomiting Morphine Sulfate 2 mg 07/31/21 05:19 08/01/21 10:31 Morphine 2 Mg/1 Ml Inj IV 2 mg Q4H PRN Administration Pain, Moderate (4-6) Naloxone HCl 0.1 mg 07/31/21 05:19 Naloxone 0.4 Mg/1 Ml Inj IV Q2MIN PRN Res Rate </= 8 or 02 SAT < 92% Ondansetron HCl 4 mg 07/31/21 05:19 Ondansetron 4 Mg/2 Ml Inj IV Q8H PRN Nausea And Vomiting Oxycodone/Acetaminophen 1 tab 07/31/21 05:19 08/03/21 01:02 Oxycodone /Acetaminophen 5-325mg Tab PO 1 tab Q6H PRN Administration Pain, Moderate (4-6) Senna 8.6 mg 07/31/21 05:19 Sennosides 8.6 Mg Tab PO Q12HR PRN Constipation Sodium Chloride 10 ml 07/31/21 10:00 08/03/21 12:16 Sodium Chloride 0.9% 10 Ml Flush Syringe IV 10 ml BID GEGE Administration Zolpidem Tartrate 5 mg 08/01/21 21:00 08/02/21 22:31 Zolpidem 5 Mg Tab PO 5 mg QHS PRN Administration Sleep Nutrition/Malnutrition Assess - Dietary Evaluation Nutrition/Malnutrition Findings: Nutrition Notes Start: 08/01/21 10:31 Freq: Status: Active Protocol: Document 08/03/21 10:51 GB (Rec: 08/03/21 10:57 GB [id number]) Nutrition Notes Initial or Follow up Reassessment Current Diagnosis Respiratory Failure Other Pertinent Diagnosis tension pneumothorax, chest pain, SOB, pneu Current Diet regular w/ensure enlive BID Labs/Tests No new labs from last assessment Pertinent Medications reviewed Height 5 ft 9 in Weight 85.8 kg [place] Body Weight (kg) 65.90 BMI 27.9 Weight change and time frame 07/31: 79.379kg 08/03: 85.8kg Change: +6.421kg for +8% significant gain Weight Status Overweight Subjective/Other Information Per chart po intake of meals are 75% or greater. This meets 80% or greater of estimated energy needs. Positive weight gain in past week. Percent of energy/protein needs met: 80% or greater Burn Absent Trauma Absent GI Symptoms None Food Allergy No Current % PO Good (75-100%) Minimum of two criteria No #1 Nutrition Diagnosis Inadequate oral intake Comments: 08/03: po intake recorded at 75 % or greater Etiology acute illness As Evidenced by Signs and Symptoms pt eating <25% of meals Diagnosis Progress(for reassessment Resolved documentation) Is patient on ventilator? No Is Patient Ambulatory and/or Out of Bed Yes REE-([place]-St. Jeor-ambulatory/OOB) [ 2122.094 [id number]] Kcal/Kg value to use for calculation 25 Approximate Energy Requirements Using 2145 kcal/Kg Calculation Used for Recommendations Kcal/kg Additional Notes RD to sign off. Nutrition Intervention Change Diet Order: continue Add Supplement/Snack (indicate name/kcal Ensure Enlive BID (08/03: /protein ) continue) Provides kCal: 700 Provides Protein (gm) 40 Goal #1 PO intake of meals to be 75% or greater TID daily for LOS Goal #2 PO intake of nutritional supplements to be 75% or greater BID daily for LOS Goal #3 Weight to maintain within +/-3 % current weight for LOS Revisit per MD consult or patient Sign Off request:
--- NOTE | 2021-08-03 13:33 | XRay Report ---
CHEST 1 VIEW 08/03/2021 10:35 AM INDICATION / CLINICAL INFORMATION: Chest tube now to continuous suction, PTX on right. COMPARISON: One view of the chest from earlier today. FINDINGS: SUPPORT DEVICES: Similarly positioned right chest tube. HEART / MEDIASTINUM: No significant abnormality. LUNGS / PLEURA: Interval increase in size of the right pneumothorax, currently measuring 2.9 cm in cr aniocaudal dimension along the right lung apex, previously 2.7 cm. ADDITIONAL FINDINGS: No significant additional findings. IMPRESSION: Similarly positioned right chest tube was slightly larger right pneumothorax. No other acute findings . Signer Name: Douglas Rojas MD Signed: 08/03/2021 1:28 PM Workstation Name: [id number]
[2021-08-03] MEDS: cefTRIAXone/NS 2 GM/100 ML 2 GM/100 ML BAG IV SCH (15:43)
[2021-08-03] MEDS: AZITHROMYCIN/NS 500 MG/250 ML 500 MG/250 ML BAG IV SCH (15:57)
[2021-08-04] MEDS: oxyCODONE /ACETAMINOPHEN 5-325MG TAB PO PRN ×2 (00:12→22:45)
[2021-08-04] MEDS: ZOLPIDEM 5 MG TAB PO PRN (00:14)
[2021-08-04] MEDS: FAMOTIDINE 20 MG/2 ML INJ IV SCH ×3 (00:14→21:55)
[2021-08-04] MEDS: ENOXAPARIN 40 MG/0.4 ML INJ SUB-Q SCH (10:18)
--- NOTE | 2021-08-04 10:54 | Event Note ---
Date: 08/04/[address] Jose altamirano who has agreed to place large bore chest tube to help with re-expansion.
--- NOTE | 2021-08-04 11:12 | Progress Note ---
Assessment and Plan Assessment and plan: --Rt. Tension pneumothorax, spontaneous Current Visit: Yes Status: Acute Right chest tube on continuous suction today Patient feels better, no new complaints Management per pulmonary Pulmonary recommended to request surgeon to place a large bore chest tube On 08/01/2021 afternoon patient's chest tube was briefly connected to underwater seal, f/u chest x-ray showed right pneumothorax, pulmonary changed back to continuous suction, Repeat chest x-ray showed complete expansion of the lung,Pulmonary following Today chest tube is on continuous suction, patient feels better --Acute chest pain Current Visit: Yes Status: Acute Due to right pneumothorax Resolved --Acute respiratory failure with hypoxia Current Visit: Yes Status: Acute Present on admission due to tension pneumothorax, Symptoms resolved --Pneumonia involving right lung Current Visit: Yes Status: Acute Chest x-ray shows right lung opacity/edema/atelectasis Patient also has leukocytosis We will start empiric antibiotics, IV Rocephin and Zithromax Follow cultures --Leukocytosis (leucocytosis) Current Visit: Yes Status: Acute monitor WBC, Blood culture Started abx therapy -- DVT prophylaxis. Current Visit: Yes Status: Acute Subcutaneous Lovenox Consults and recommendations noted and appreciated We will closely monitor the patient and adjust the management as needed Plan of care reviewed with the patient and her nurse Brief history and daily hospital course: 31-year-old female patient was admitted with acute shortness of breath and chest pain noted to have right-sided tension pneumothorax patient received emergency right-sided chest tube placement connected to continuous suction, post chest tu be chest x-ray revealed complete expansion of the lung Patient symptoms significantly improved. 07/31/2021; Patient is alert awake oriented very minimal chest pain no shortness of breath Right-sided chest tube in place on continuous suction, pulmonary following Recommend chest tube underwater seal after 24 hours. 08/01/2021; chest tube in place on continuous suction Patient complains of some insomnia, will order some Ambien as needed at night Patient has leukocytosis, opacity on chest x-ray atelectasis/ Will start empiric antibiotic Rocephin and Zithromax, check procalcitonin 08/02/2021; chest tube in place continuous suction Pulmonary following 08/03/2021; patient feels better, chest tube continues suction Chest x-ray requested 08/04/2021; pulmonary considering To request the surgeon to place a large bore chest tube if needed. History Interval history: I have seen and examined the patient at the bedside this morning Patient's chart and medications reviewed No new events reported by the nursing Patient is comfortable denies chest pain or shortness of breath Chest tube in place Hospitalist Physical - Constitutional Vitals: Temp Pulse Resp BP Pulse Ox 98.6 F 91 H 18 130/78 100 08/04/21 04:55 08/04/21 04:55 08/04/21 04:55 08/04/21 04:55 08/04/21 04:55 General appearance: Present: no acute distress, well-nourished, other (Right- sided chest tube under continuous suction) - EENT Eyes: Present: PERRL, EOM intact - Neck Neck: Present: supple, normal ROM - Respiratory Respiratory effort: normal Respiratory: right: diminished, negative: rales, rhonchi, wheezing - Cardiovascular Rhythm: regular Heart Sounds: Present: S1 & S2 - Extremities Extremities: no ischemia, No edema - Abdominal General gastrointestinal: soft, non-tender, non-distended - Integumentary Integumentary: Present: clear, warm - Psychiatric Psychiatric: appropriate mood/affect, cooperative - Neurologic Neurologic: CNII-XII intact, moves all extremities Results - Labs CBC & Chem 7: 08/04/21 14:52 08/01/21 06:00 Labs: Laboratory Last Values WBC 11.8 K/mm3 (4.5-11.0) H 08/01/21 06:00 RBC 4.64 M/mm3 (3.65-5.03) 08/01/21 06:00 Hgb 11.3 gm/dl (10.1-14.3) 08/01/21 06:00 Hct 35.0 % (30.3-42.9) 08/01/21 06:00 MCV 75 fl (79-97) L 08/01/21 06:00 MCH 24 pg (28-32) L 08/01/21 06:00 MCHC 32 % (30-34) 08/01/21 06:00 RDW 17.4 % (13.2-15.2) H 08/01/21 06:00 Plt Count 376 K/mm3 (140-440) 08/01/21 06:00 Lymph % (Auto) 24.7 % (13.4-35.0) 08/01/21 06:00 [place] % (Auto) 8.1 % (0.0-7.3) H 08/01/21 06:00 Eos % (Auto) 1.7 % (0.0-4.3) 08/01/21 06:00 Baso % (Auto) 0.2 % (0.0-1.8) 08/01/21 06:00 Lymph # (Auto) 2.9 K/mm3 (1.2-5.4) 08/01/21 06:00 [place] # (Auto) 1.0 K/mm3 (0.0-0.8) H 08/01/21 06:00 Eos # (Auto) 0.2 K/mm3 (0.0-0.4) 08/01/21 06:00 Baso # (Auto) 0.0 K/mm3 (0.0-0.1) 08/01/21 06:00 Seg Neutrophils % 65.3 % (40.0-70.0) 08/01/21 06:00 Seg Neutrophils # 7.7 K/mm3 (1.8-7.7) 08/01/21 06:00 PT 14.2 Sec. (12.2-14.9) 07/31/21 03:19 INR 1.05 (0.87-1.13) 07/31/21 03:19 APTT 30.0 Sec. (24.2-36.6) 07/31/21 03:19 Sodium 140 mmol/L (137-145) 08/01/21 06:00 Potassium 4.0 mmol/L (3.6-5.0) 08/01/21 06:00 Chloride 104.6 mmol/L (98-107) 08/01/21 06:00 Carbon Dioxide 23 mmol/L (22-30) 08/01/21 06:00 Anion Gap 16 mmol/L 08/01/21 06:00 BUN 12 mg/dL (7-17) 08/01/21 06:00 Creatinine 0.8 mg/dL (0.6-1.2) 08/01/21 06:00 Estimated GFR > 60 ml/min 08/01/21 06:00 BUN/Creatinine Ratio 15 % 08/01/21 06:00 Glucose 90 mg/dL (65-100) 08/01/21 06:00 Hemoglobin A1c 5.6 % (4-6) 07/31/21 01:49 Calcium 9.0 mg/dL (8.4-10.2) 08/01/21 06:00 Total Bilirubin 0.30 mg/dL (0.1-1.2) 08/01/21 06:00 AST 13 units/L (5-40) 08/01/21 06:00 ALT 8 units/L (7-56) 08/01/21 06:00 Alkaline Phosphatase 65 units/L (35-129) 08/01/21 06:00 Total Protein 7.8 g/dL (6.3-8.2) 08/01/21 06:00 Albumin 3.9 g/dL (3.9-5) 08/01/21 06:00 Albumin/Globulin Ratio 1.0 % 08/01/21 06:00 Procalcitonin 0.54 ng/mL (<0.15) 08/02/21 13:21 HCG, Qual Negative (Negative) 07/31/21 01:49 Urine Color Yellow (Yellow) 07/31/21 Unknown Urine Turbidity Slightly-cloudy (Clear) 07/31/21 Unknown Urine pH 5.0 (5.0-7.0) 07/31/21 Unknown Ur Specific [place] 1.009 (1.003-1.030) 07/31/21 Unknown Urine Protein <15 mg/dl mg/dL (Negative) 07/31/21 Unknown Urine Glucose (UA) Neg mg/dL (Negative) 07/31/21 Unknown Urine Ketones 20 mg/dL (Negative) 07/31/21 Unknown Urine Blood Neg (Negative) 07/31/21 Unknown Urine Nitrite Neg (Negative) 07/31/21 Unknown Urine Bilirubin Neg (Negative) 07/31/21 Unknown Urine Urobilinogen < 2.0 mg/dL (<2.0) 07/31/21 Unknown Ur Leukocyte Esterase Neg (Negative) 07/31/21 Unknown Urine WBC (Auto) 2.0 /HPF (0.0-6.0) 07/31/21 Unknown Urine RBC (Auto) 2.0 /HPF (0.0-6.0) 07/31/21 Unknown U Epithel Cells (Auto) 11.0 /HPF (0-13.0) 07/31/21 Unknown Urine Bacteria (Auto) 1+ /HPF (Negative) 07/31/21 Unknown Urine Mucus Few /HPF 07/31/21 Unknown Microbiology: Microbiology 07/31/21 08:35 Peripheral/Venous Blood Culture - Preliminary NO GROWTH AFTER 4 DAYS 07/31/21 08:35 Peripheral/Venous Blood Culture - Preliminary NO GROWTH AFTER 4 DAYS 08/01/21 Unknown Urine,Clean Catch Urine Culture - Preliminary Green/IV: Voiding Method Bedside Commode Active Medications - Current Medications Current Medications: Generic Name Dose Route Start Last Admin Trade Name Freq PRN Reason Stop Dose Admin Acetaminophen 650 mg 07/31/21 05:19 Acetaminophen 325 Mg Tab PO Q4H PRN Pain MILD(1-3)/Fever >100.5/BOOTHE Al Hydrox/Mg Hydrox/Simethicone 30 ml 07/31/21 05:19 Alum-Mag Hydroxide-Simethicone [phone]/5ml Oral Liqd 30 Ml PO Q4H PRN Indigestion Enoxaparin Sodium 40 mg 07/31/21 10:00 08/04/21 10:18 Enoxaparin 40 Mg/0.4 Ml Inj SUB-Q 40 mg QDAY GEGE Administration Famotidine 20 mg 07/31/21 10:00 08/04/21 10:18 Famotidine 20 Mg/2 Ml Inj IV 20 mg BID GEGE Administration Ceftriaxone Sodium 2 gm in 100 mls @ 200 mls/hr 08/01/21 14:00 08/03/21 15:43 Rocephin/Ns 2 Gm/100 Ml IV 08/05/21 14:29 200 mls/hr Q24H GEGE Administration Protocol Azithromycin 500 mg in 250 mls @ 250 mls/hr 08/01/21 14:00 08/03/21 15:57 Zithromax/Ns IV 08/05/21 14:59 250 mls/hr Q24H GEGE Administration Magnesium Hydroxide 30 ml 07/31/21 05:19 Magnesium Hydroxide (Mom) Oral Liqd Udc PO Q4H PRN Constipation Metoclopramide HCl 10 mg 07/31/21 05:19 Metoclopramide 10 Mg/2 Ml Inj IV Q6H PRN Nausea And Vomiting Morphine Sulfate 2 mg 07/31/21 05:19 08/01/21 10:31 Morphine 2 Mg/1 Ml Inj IV 2 mg Q4H PRN Administration Pain, Moderate (4-6) Naloxone HCl 0.1 mg 07/31/21 05:19 Naloxone 0.4 Mg/1 Ml Inj IV Q2MIN PRN Res Rate </= 8 or 02 SAT < 92% Ondansetron HCl 4 mg 07/31/21 05:19 Ondansetron 4 Mg/2 Ml Inj IV Q8H PRN Nausea And Vomiting Oxycodone/Acetaminophen 1 tab 07/31/21 05:19 08/04/21 00:12 Oxycodone /Acetaminophen 5-325mg Tab PO 1 tab Q6H PRN Administration Pain, Moderate (4-6) Senna 8.6 mg 07/31/21 05:19 Sennosides 8.6 Mg Tab PO Q12HR PRN Constipation Sodium Chloride 10 ml 07/31/21 10:00 08/04/21 10:19 Sodium Chloride 0.9% 10 Ml Flush Syringe IV 10 ml BID GEGE Administration Zolpidem Tartrate 5 mg 08/01/21 21:00 08/04/21 00:14 Zolpidem 5 Mg Tab PO 5 mg QHS PRN Administration Sleep Nutrition/Malnutrition Assess - Dietary Evaluation Nutrition/Malnutrition Findings: Nutrition Notes Start: 08/01/21 10:31 Freq: Status: Active Protocol: Document 08/03/21 10:51 GB (Rec: 08/03/21 10:57 GB [id number]) Nutrition Notes Initial or Follow up Reassessment Current Diagnosis Respiratory Failure Other Pertinent Diagnosis tension pneumothorax, chest pain, SOB, pneu Current Diet regular w/ensure enlive BID Labs/Tests No new labs from last assessment Pertinent Medications reviewed Height 5 ft 9 in Weight 85.8 kg [place] Body Weight (kg) 65.90 BMI 27.9 Weight change and time frame 07/31: 79.379kg 08/03: 85.8kg Change: +6.421kg for +8% significant gain Weight Status Overweight Subjective/Other Information Per chart po intake of meals are 75% or greater. This meets 80% or greater of estimated energy needs. Positive weight gain in past week. Percent of energy/protein needs met: 80% or greater Burn Absent Trauma Absent GI Symptoms None Food Allergy No Current % PO Good (75-100%) Minimum of two criteria No #1 Nutrition Diagnosis Inadequate oral intake Comments: 08/03: po intake recorded at 75 % or greater Etiology acute illness As Evidenced by Signs and Symptoms pt eating <25% of meals Diagnosis Progress(for reassessment Resolved documentation) Is patient on ventilator? No Is Patient Ambulatory and/or Out of Bed Yes REE-([place]. Jeor-ambulatory/OOB) [ 9562.094 [id number]] Kcal/Kg value to use for calculation 25 Approximate Energy Requirements Using 2145 kcal/Kg Calculation Used for Recommendations Kcal/kg Additional Notes RD to sign off. Nutrition Intervention Change Diet Order: continue Add Supplement/Snack (indicate name/kcal Ensure Enlive BID (08/03: /protein ) continue) Provides kCal: 700 Provides Protein (gm) 40 Goal #1 PO intake of meals to be 75% or greater TID daily for LOS Goal #2 PO intake of nutritional supplements to be 75% or greater BID daily for LOS Goal #3 Weight to maintain within +/-3 % current weight for LOS Revisit per MD consult or patient Sign Off request:
--- NOTE | 2021-08-04 12:40 | Consultation ---
History of Present Illness Consult date: 08/04/21 Reason for consult: chest tube - History of present illness History of present illness: 31 yo female with spontaneous right PTX. Initial small bore tube placed but PTX is not improving. Past History Past Medical History: No medical history Past Surgical History: No surgical history Social history: lives with family, full code. denies: smoking, alcohol abuse, prescription drug abuse, IV drug use Family history: no significant family history Medications and Allergies Allergies Allergy/AdvReac Type Severity Reaction Status Date / Time No Known Allergies Allergy Unverified 07/31/21 01:39 Home Medications Medication Instructions Recorded Confirmed Last Taken Type No Known Home Medications [No 08/01/21 08/01/21 Unknown History Reported Home Medications] Active Meds: Active Medications Acetaminophen (Acetaminophen 325 Mg Tab) 650 mg PO Q4H PRN PRN Reason: Pain MILD(1-3)/Fever >100.5/BOOTHE Al Hydrox/Mg Hydrox/Simethicone (Alum-Mag Hydroxide-Simethicone [phone]/5ml Oral Liqd 30 Ml) 30 ml PO Q4H PRN PRN Reason: Indigestion Enoxaparin Sodium (Enoxaparin 40 Mg/0.4 Ml Inj) 40 mg SUB-Q QDAY [facility] Last Admin: 08/04/21 10:18 Dose: 40 mg Documented by: Famotidine (Famotidine 20 Mg/2 Ml Inj) 20 mg IV BID [facility] Last Admin: 08/04/21 10:18 Dose: 20 mg Documented by: Ceftriaxone Sodium (Rocephin/Ns 2 Gm/100 Ml) 2 gm in 100 mls @ 200 mls/hr IV Q24H [facility]; Protocol Stop: 08/05/21 14:29 Last Admin: 08/03/21 15:43 Dose: 200 mls/hr Documented by: Azithromycin (Zithromax/Ns) 500 mg in 250 mls @ 250 mls/hr IV Q24H [facility] Stop: 08/05/21 14:59 Last Admin: 08/03/21 15:57 Dose: 250 mls/hr Documented by: Magnesium Hydroxide (Magnesium Hydroxide (Mom) Oral Liqd Udc) 30 ml PO Q4H PRN PRN Reason: Constipation Metoclopramide HCl (Metoclopramide 10 Mg/2 Ml Inj) 10 mg IV Q6H PRN PRN Reason: Nausea And Vomiting Morphine Sulfate (Morphine 2 Mg/1 Ml Inj) 2 mg IV Q4H PRN PRN Reason: Pain, Moderate (4-6) Last Admin: 08/01/21 10:31 Dose: 2 mg Documented by: Naloxone HCl (Naloxone 0.4 Mg/1 Ml Inj) 0.1 mg IV Q2MIN PRN PRN Reason: Res Rate </= 8 or 02 SAT < 92% Ondansetron HCl (Ondansetron 4 Mg/2 Ml Inj) 4 mg IV Q8H PRN PRN Reason: Nausea And Vomiting Oxycodone/Acetaminophen (Oxycodone /Acetaminophen 5-325mg Tab) 1 tab PO Q6H PRN PRN Reason: Pain, Moderate (4-6) Last Admin: 08/04/21 00:12 Dose: 1 tab Documented by: Senna (Sennosides 8.6 Mg Tab) 8.6 mg PO Q12HR PRN PRN Reason: Constipation Sodium Chloride (Sodium Chloride 0.9% 10 Ml Flush Syringe) 10 ml IV BID GEGE Last Admin: 08/04/21 10:19 Dose: 10 ml Documented by: Zolpidem Tartrate (Zolpidem 5 Mg Tab) 5 mg PO QHS PRN PRN Reason: Sleep Last Admin: 08/04/21 00:14 Dose: 5 mg Documented by: Review of Systems All systems: negative (none.) Exam Vital Signs Temp Pulse Resp BP Pulse Ox 98 F 95 H 18 117/87 95 07/31/21 01:42 07/31/21 01:42 07/31/21 01:42 07/31/21 01:42 07/31/21 01:42 - General physical appearance Positive: well developed, well nourished, no distress - Eyes Positive: PERRL, normal occular movement - ENT Positive: normal pinna, normal nares, normal mucosa, no hearing loss, no congestion - Neck Positive: no masses, no bruits, trachea midline, no venous distension - Respiratory Positive: normal expansion, normal respiratory effort, clear to auscultation - Cardiovascular Rhythm: regular Heart Sounds: Present: S1 & S2. Absent: rub, click - Extremities Extremities: no ischemia, pulses symmetrical, No edema - Breasts Breasts: normal, no mass, no skin changes - Abdomen Abdomen: Present: soft, bowel sounds normal. Absent: tender, distended Hernia: none - Genitourinary Male Genitourinary: normal Female Genitourinary: normal - Integumentary no rash, no growths, no abnormal pigmentation - Neurologic Neurologic: alert and oriented to time, place and person, motor strength and sensation are grossly intact - Musculoskeletal normal gait, normal posture - Psychiatric Psychiatric: appropriate mood/affect, intact judgment & insight Results - Labs 08/01/21 06:00 08/01/21 06:00 - Imaging Chest x-ray: report reviewed, image reviewed Assessment and Plan - Patient Problems (1) Pneumothorax, right Current Visit: Yes Status: Acute Plan to address problem: 1) Will place a regular bore right chest tube.
[2021-08-04] MEDS: MORPHINE 2 MG/1 ML INJ IV PRN (12:50)
[2021-08-04] MEDS ORDERED: LIDOCAINE-MPF (1%) 10 MG/1 ML VIAL 5 ML INFILTRATI ONE (12:54)
[2021-08-04] MEDS ORDERED: LIDOCAINE (1%) 10 MG/1 ML VIAL 20 ML MDV ONE (12:57)
--- NOTE | 2021-08-04 13:38 | Procedure Note ---
Date of procedure: 08/04/21 Pre-op diagnosis: Right PTX Post-op diagnosis: same Procedure: Right chest tube placement Description of procedure: Pt was placed supine on her bed with her right arm raised over her head. Morphine, 2 mg IV was given. The right lateral chest wall was prepped and draped. Skin, SQ tissue and the anticipated intercostal space were infiltrated with 20 ml of 1% Lidocaine. A small skin incision was made at the anterior axillary line at the level of the nipple. SQ tissue was dissected with a Merry clamp. The pleural cavity was entered over the top of a rib. A 23 [place] chest tube (CT) was inserted into the pleural cavity and was advanced without difficulty. The CT was secured to the skin with a suture of 0- silk. Vaseline impregnated gauze was placed about the CT exit site followed by 4 X 4's which were secured with an occlusive silk tape dressing. The CT was connected to the Pleurevac and the Pleurevac connected to -20 cm of water suction. Pt tolerated the procedure well. F/u CXR is pending. Anesthesia: local, other (Morphine, 2 mg IV) Surgeon: HENRY CARSON Estimated blood loss: minimal Pathology: none Condition: stable Disposition: no change
[2021-08-04] MEDS ORDERED: FERROUS SULFATE 325 MG TAB PO ONE (13:54)
--- NOTE | 2021-08-04 13:54 | Event Note ---
Date: 08/04/21 Appreciate Surgery assistance with large bore chest tube. Lung is up on CXR reviewed by me at bedside with no air leak. Spoke with floor nurses about the pleurovac system and patient's nurse. Suction is on continuous and Pleurovac is set at [id number]. Will continue this for the next 48 hours. So I will take the patient off suction on Friday morning. Patient also concerned that she may be anemic and needs iron as she has just started her menstrual cycle 2 days ago. Will obtain CBC, Ferritin levels and start patient on iron therapy. She will need a stool softner as well which I will order.
[2021-08-04] MEDS: cefTRIAXone/NS 2 GM/100 ML 2 GM/100 ML BAG IV SCH (14:00)
[2021-08-04] MEDS: AZITHROMYCIN/NS 500 MG/250 ML 500 MG/250 ML BAG IV SCH (14:00)
--- NOTE | 2021-08-04 15:16 | XRay Report ---
CHEST 1 VIEW 08/04/2021 1:34 PM INDICATION / CLINICAL INFORMATION: Right pneumothorax. COMPARISON: 08/03/21 FINDINGS: SUPPORT DEVICES: Interval removal of right pleural tube with placement of a right thoracostomy tube w ith the tip at the right lung apex. HEART / MEDIASTINUM: Stable. LUNGS / PLEURA: Linear density in the right lung base which may represent atelectasis. No pneumothora x. ADDITIONAL FINDINGS: No significant additional findings. IMPRESSION: 1. No right pneumothorax after placement of right chest tube. Signer Name: Nirali Chung MD Signed: 08/04/2021 3:12 PM Workstation Name: [id number]
[2021-08-04 15:58] LABS: Iron 25 ug/dL (37-170); Total Iron Binding Capacity 407 mcg/dL (250-450)
[2021-08-04 16:10] LABS: Basophils % (Auto) 0.2 % (0.0-1.8); Eosinophils % (Auto) 0.2 % (0.0-4.3); Hematocrit 34.2 % (30.3-42.9); Lymphocytes # (Auto) 1.7 K/mm3 (1.2-5.4); Lymphocytes % (Auto) 17.8 % (13.4-35.0); Mean Corpuscular HGB Conc 32 % (30-34); Mean Corpuscular Volume 77 fl (79-97); Monocytes # (Auto) 0.8 K/mm3 (0.0-0.8); Monocytes % (Auto) 8.5 % (0.0-7.3); Platelet Count 423 K/mm3 (140-440); Red Blood Count 4.45 M/mm3 (3.65-5.03); Red Cell Distribution Width 17.5 % (13.2-15.2)
[2021-08-05] MEDS: FAMOTIDINE 20 MG/2 ML INJ IV SCH ×2 (10:00→21:20)
[2021-08-05] MEDS: ENOXAPARIN 40 MG/0.4 ML INJ SUB-Q SCH (10:00)
--- NOTE | 2021-08-05 11:45 | Progress Note ---
Assessment and Plan Assessment and plan: --Right chest tube replacement; Yesterday 08/04/2021, small bore chest tube was removed And 24 [place] large bore right chest tube was placed by surgeon Dr. Garcia The CT was connected to the Pleurevac and the Pleurevac connected to -20 cm of water suction. Follow-up chest x-ray no pneumothorax --Rt. Tension pneumothorax, spontaneous Current Visit: Yes Status: Acute Small bore right chest tube was removed and replaced with 24 [place] large bore right chest tube Check chest x-ray did not reveal any pneumothorax --Acute chest pain Current Visit: Yes Status: Acute Resolved --Acute respiratory failure with hypoxia Current Visit: Yes Status: Acute Present on admission due to tension pneumothorax, Now resolved, home O2 evaluation prior to discharge --Pneumonia involving right lung Current Visit: Yes Status: Acute Chest x-ray shows right lung opacity/edema/atelectasis Patient also has leukocytosis Total 5 days of Rocephin and Zithromax, last dose today --Leukocytosis (leucocytosis) Current Visit: Yes Status: Acute Received 5 days of antibiotics ,resolved -- DVT prophylaxis. Current Visit: Yes Status: Acute Subcutaneous Lovenox Consults and recommendations noted and appreciated We will closely monitor the patient and adjust the management as needed Plan of care reviewed with the patient and her nurse Brief history and daily hospital course: 31-year-old female patient was admitted with acute shortness of breath and chest pain noted to have right-sided tension pneumothorax patient received emergency right-sided chest tube placement connected to continuous suction, post chest tube chest x-ray revealed complete expansion of the lung Patient symptoms significantly improved. 07/31/2021; Patient is alert awake oriented very minimal chest pain no shortness of breath Right-sided chest tube in place on continuous suction, pulmonary following Recommend chest tube underwater seal after 24 hours. 08/01/2021; chest tube in place on continuous suction Patient complains of some insomnia, will order some Ambien as needed at night Patient has leukocytosis, opacity on chest x-ray atelectasis/ Will start empiric antibiotic Rocephin and Zithromax, check procalcitonin 08/02/2021; chest tube in place continuous suction Pulmonary following 08/03/2021; patient feels better, chest tube continues suction Chest x-ray requested 08/04/2021; pulmonary considering To request the surgeon to place a large bore chest tube if needed. 08/05/2021 ;24 [place] chest tube was inserted by surgery yesterday Pleurevac connected to -20 cm of water suction. Chest x-ray complete expansion of the lung Follow consultants recommendation History Interval history: I seen and examined the patient at the bedside Patient's chart and medications reviewed Dr. Garcia's inserted large-bore chest tube yesterday Patient feels better Hospitalist Physical - Constitutional Vitals: Temp Pulse Resp BP Pulse Ox 98.3 F 79 16 132/88 100 08/05/21 04:33 08/05/21 04:33 08/05/21 04:33 08/05/21 04:33 08/05/21 04:33 General appearance: Present: no acute distress, well-nourished, other (Right- sided chest tube under continuous suction) - EENT Eyes: Present: PERRL, EOM intact - Neck Neck: Present: supple, normal ROM - Respiratory Respiratory effort: normal, other (Right chest tube under suction) Respiratory: bilateral: diminished, negative: rales, rhonchi, wheezing - Cardiovascular Rhythm: regular Heart Sounds: Present: S1 & S2 - Extremities Extremities: no ischemia, No edema - Abdominal General gastrointestinal: soft, non-tender, non-distended, normal bowel sounds - Integumentary Integumentary: Present: clear, warm - Psychiatric Psychiatric: appropriate mood/affect, cooperative - Neurologic Neurologic: moves all extremities Results - Labs CBC & Chem 7: 08/04/21 14:52 08/01/21 06:00 Labs: Laboratory Last Values WBC 9.4 K/mm3 (4.5-11.0) 08/04/21 14:52 RBC 4.45 M/mm3 (3.65-5.03) 08/04/21 14:52 Hgb 11.0 gm/dl (10.1-14.3) 08/04/21 14:52 Hct 34.2 % (30.3-42.9) 08/04/21 14:52 MCV 77 fl (79-97) L 08/04/21 14:52 MCH 25 pg (28-32) L 08/04/21 14:52 MCHC 32 % (30-34) 08/04/21 14:52 RDW 17.5 % (13.2-15.2) H 08/04/21 14:52 Plt Count 423 K/mm3 (140-440) 08/04/21 14:52 Lymph % (Auto) 17.8 % (13.4-35.0) 08/04/21 14:52 [place] % (Auto) 8.5 % (0.0-7.3) H 08/04/21 14:52 Eos % (Auto) 0.2 % (0.0-4.3) 08/04/21 14:52 Baso % (Auto) 0.2 % (0.0-1.8) 08/04/21 14:52 Lymph # (Auto) 1.7 K/mm3 (1.2-5.4) 08/04/21 14:52 Henderson # (Auto) 0.8 K/mm3 (0.0-0.8) 08/04/21 14:52 Eos # (Auto) 0.0 K/mm3 (0.0-0.4) 08/04/21 14:52 Baso # (Auto) 0.0 K/mm3 (0.0-0.1) 08/04/21 14:52 Seg Neutrophils % 73.3 % (40.0-70.0) H 08/04/21 14:52 Seg Neutrophils # 6.9 K/mm3 (1.8-7.7) 08/04/21 14:52 PT 14.2 Sec. (12.2-14.9) 07/31/21 03:19 INR 1.05 (0.87-1.13) 07/31/21 03:19 APTT 30.0 Sec. (24.2-36.6) 07/31/21 03:19 Sodium 140 mmol/L (137-145) 08/01/21 06:00 Potassium 4.0 mmol/L (3.6-5.0) 08/01/21 06:00 Chloride 104.6 mmol/L (98-107) 08/01/21 06:00 Carbon Dioxide 23 mmol/L (22-30) 08/01/21 06:00 Anion Gap 16 mmol/L 08/01/21 06:00 BUN 12 mg/dL (7-17) 08/01/21 06:00 Creatinine 0.8 mg/dL (0.6-1.2) 08/01/21 06:00 Estimated GFR > 60 ml/min 08/01/21 06:00 BUN/Creatinine Ratio 15 % 08/01/21 06:00 Glucose 90 mg/dL (65-100) 08/01/21 06:00 Hemoglobin A1c 5.6 % (4-6) 07/31/21 01:49 Calcium 9.0 mg/dL (8.4-10.2) 08/01/21 06:00 Iron 25 ug/dL (37-170) L 08/04/21 14:51 TIBC 407 mcg/dL (250-450) 08/04/21 14:51 Ferritin 10.4 ng/mL (10.0-200.0) 08/04/21 14:51 Total Bilirubin 0.30 mg/dL (0.1-1.2) 08/01/21 06:00 AST 13 units/L (5-40) 08/01/21 06:00 ALT 8 units/L (7-56) 08/01/21 06:00 Alkaline Phosphatase 65 units/L (35-129) 08/01/21 06:00 Total Protein 7.8 g/dL (6.3-8.2) 08/01/21 06:00 Albumin 3.9 g/dL (3.9-5) 08/01/21 06:00 Albumin/Globulin Ratio 1.0 % 08/01/21 06:00 Procalcitonin 0.54 ng/mL (<0.15) 08/02/21 13:21 HCG, Qual Negative (Negative) 07/31/21 01:49 Urine Color Yellow (Yellow) 07/31/21 Unknown Urine Turbidity Slightly-cloudy (Clear) 07/31/21 Unknown Urine pH 5.0 (5.0-7.0) 07/31/21 Unknown Ur Specific [place] 1.009 (1.003-1.030) 07/31/21 Unknown Urine Protein <15 mg/dl mg/dL (Negative) 07/31/21 Unknown Urine Glucose (UA) Neg mg/dL (Negative) 07/31/21 Unknown Urine Ketones 20 mg/dL (Negative) 07/31/21 Unknown Urine Blood Neg (Negative) 07/31/21 Unknown Urine Nitrite Neg (Negative) 07/31/21 Unknown Urine Bilirubin Neg (Negative) 07/31/21 Unknown Urine Urobilinogen < 2.0 mg/dL (<2.0) 07/31/21 Unknown Ur Leukocyte Esterase Neg (Negative) 07/31/21 Unknown Urine WBC (Auto) 2.0 /HPF (0.0-6.0) 07/31/21 Unknown Urine RBC (Auto) 2.0 /HPF (0.0-6.0) 07/31/21 Unknown U Epithel Cells (Auto) 11.0 /HPF (0-13.0) 07/31/21 Unknown Urine Bacteria (Auto) 1+ /HPF (Negative) 07/31/21 Unknown Urine Mucus Few /HPF 07/31/21 Unknown Microbiology: Microbiology 07/31/21 08:35 Peripheral/Venous Blood Culture - Final NO GROWTH AFTER 5 DAYS 07/31/21 08:35 Peripheral/Venous Blood Culture - Final NO GROWTH AFTER 5 DAYS 08/01/21 Unknown Urine,Clean Catch Urine Culture - Final Green/IV: Voiding Method Bedside Commode Active Medications - Current Medications Current Medications: Generic Name Dose Route Start Last Admin Trade Name Freq PRN Reason Stop Dose Admin Acetaminophen 650 mg 07/31/21 05:19 Acetaminophen 325 Mg Tab PO Q4H PRN Pain MILD(1-3)/Fever >100.5/BOOTHE Al Hydrox/Mg Hydrox/Simethicone 30 ml 07/31/21 05:19 Alum-Mag Hydroxide-Simethicone [id number]/5ml Oral Liqd 30 Ml PO Q4H PRN Indigestion Enoxaparin Sodium 40 mg 07/31/21 10:00 08/05/21 10:00 Enoxaparin 40 Mg/0.4 Ml Inj SUB-Q 40 mg QDAY GEGE Administration Famotidine 20 mg 07/31/21 10:00 08/05/21 10:00 Famotidine 20 Mg/2 Ml Inj IV 20 mg BID GEGE Administration Ceftriaxone Sodium 2 gm in 100 mls @ 200 mls/hr 08/01/21 14:00 08/04/21 21:17 Rocephin/Ns 2 Gm/100 Ml IV 08/05/21 14:29 Infused Q24H GEGE Infusion Protocol Azithromycin 500 mg in 250 mls @ 250 mls/hr 08/01/21 14:00 08/04/21 21:18 Zithromax/Ns IV 08/05/21 14:59 Infused Q24H GEGE Infusion Magnesium Hydroxide 30 ml 07/31/21 05:19 Magnesium Hydroxide (Mom) Oral Liqd Udc PO Q4H PRN Constipation Metoclopramide HCl 10 mg 07/31/21 05:19 Metoclopramide 10 Mg/2 Ml Inj IV Q6H PRN Nausea And Vomiting Morphine Sulfate 2 mg 07/31/21 05:19 08/04/21 12:50 Morphine 2 Mg/1 Ml Inj IV 2 mg Q4H PRN Administration Pain, Moderate (4-6) Naloxone HCl 0.1 mg 07/31/21 05:19 Naloxone 0.4 Mg/1 Ml Inj IV Q2MIN PRN Res Rate </= 8 or 02 SAT < 92% Ondansetron HCl 4 mg 07/31/21 05:19 Ondansetron 4 Mg/2 Ml Inj IV Q8H PRN Nausea And Vomiting Oxycodone/Acetaminophen 1 tab 07/31/21 05:19 08/04/21 22:45 Oxycodone /Acetaminophen 5-325mg Tab PO 1 tab Q6H PRN Administration Pain, Moderate (4-6) Senna 8.6 mg 07/31/21 05:19 Sennosides 8.6 Mg Tab PO Q12HR PRN Constipation Sodium Chloride 10 ml 07/31/21 10:00 08/05/21 10:00 Sodium Chloride 0.9% 10 Ml Flush Syringe IV 10 ml BID GEGE Administration Zolpidem Tartrate 5 mg 08/01/21 21:00 08/04/21 00:14 Zolpidem 5 Mg Tab PO 5 mg QHS PRN Administration Sleep Nutrition/Malnutrition Assess - Dietary Evaluation Nutrition/Malnutrition Findings: Nutrition Notes Start: 08/01/21 10:31 Freq: Status: Active Protocol: Document 08/03/21 10:51 GB (Rec: 08/03/21 10:57 GB [email or web address]) Nutrition Notes Initial or Follow up Reassessment Current Diagnosis Respiratory Failure Other Pertinent Diagnosis tension pneumothorax, chest pain, SOB, pneu Current Diet regular w/ensure enlive BID Labs/Tests No new labs from last assessment Pertinent Medications reviewed Height 5 ft 9 in Weight 85.8 kg Jelm Body Weight (kg) 65.90 BMI 27.9 Weight change and time frame 07/31: 79.379kg 9/24: 85.8kg Change: +6.421kg for +8% significant gain Weight Status Overweight Subjective/Other Information Per chart po intake of meals are 75% or greater. This meets 80% or greater of estimated energy needs. Positive weight gain in past week. Percent of energy/protein needs met: 80% or greater Burn Absent Trauma Absent GI Symptoms None Food Allergy No Current % PO Good (75-100%) Minimum of two criteria No #1 Nutrition Diagnosis Inadequate oral intake Comments: 08/03: po intake recorded at 75 % or greater Etiology acute illness As Evidenced by Signs and Symptoms pt eating <25% of meals Diagnosis Progress(for reassessment Resolved documentation) Is patient on ventilator? No Is Patient Ambulatory and/or Out of Bed Yes REE-([place]-St. Jeor-ambulatory/OOB) [ 2122.094 [id number]] Kcal/Kg value to use for calculation 25 Approximate Energy Requirements Using 2145 kcal/Kg Calculation Used for Recommendations Kcal/kg Additional Notes RD to sign off. Nutrition Intervention Change Diet Order: continue Add Supplement/Snack (indicate name/kcal Ensure Enlive BID (08/03: /protein ) continue) Provides kCal: 700 Provides Protein (gm) 40 Goal #1 PO intake of meals to be 75% or greater TID daily for LOS Goal #2 PO intake of nutritional supplements to be 75% or greater BID daily for LOS Goal #3 Weight to maintain within +/-3 % current weight for LOS Revisit per MD consult or patient Sign Off request:
--- NOTE | 2021-08-05 13:28 | Progress Note ---
Assessment and Plan - Patient Problems (1) Pneumothorax, right Current Visit: Yes Status: Acute Plan to address problem: 1) S/p satisfactory chest tube placement. I have nothing further to add and will sign off. Subjective Date of service: 08/05/21 Patient Reports: Positive: no new complaints, feels better Objective Vital Signs - 12hr 08/05/21 04:33 Temperature 98.3 F Pulse Rate 79 Respiratory 16 Rate Blood Pressure 132/88 O2 Sat by Pulse 100 Oximetry - Respiratory normal expansion, normal respiratory effort, clear to percussion, clear to auscultation - Labs 08/04/21 14:52 08/01/21 06:00 - Imaging Chest x-ray: report reviewed, image reviewed
[2021-08-05] MEDS: cefTRIAXone/NS 2 GM/100 ML 2 GM/100 ML BAG IV SCH (14:49)
[2021-08-05] MEDS: AZITHROMYCIN/NS 500 MG/250 ML 500 MG/250 ML BAG IV SCH (14:49)
[2021-08-05] MEDS: oxyCODONE /ACETAMINOPHEN 5-325MG TAB PO PRN (21:19)
[2021-08-06] MEDS: ENOXAPARIN 40 MG/0.4 ML INJ SUB-Q SCH (12:07)
[2021-08-06] MEDS: FAMOTIDINE 20 MG/2 ML INJ IV SCH ×2 (12:07→21:46)
--- NOTE | 2021-08-06 13:03 | Event Note ---
Date: 08/06/21 Took patient off suction and ordered CXR while in room. Awaited for CXR to be taken. Reviewed CXR at bedside and pTX is there off suction. A tech was present who speaks the patient's [place] tongue. I explained to the patient that she needs to be transferred to hospital that has thoracic surgery as this institution does not. This transfer, must be initiated by the hospitalist and the reason for transfer is VATS for persistent PTX despite multiple chest tubes, of unknown etiology. I will reach out to the 2 thorac surgeons I know at [facility] and [facility] but I suggest requests but put out to [facility], [place], [place] as all hospital are very full given recent COVID surge. Again, this transfer must be initiated by the medicine service by requesting the bed and I will do what I can. For now the patient should remain on suction and not be taken off. Again this patient needs to be transferred to a hospital with thoracic surgery as she needs a VATS for persistent pneumothorax of unknown etiology.
--- NOTE | 2021-08-06 13:15 | XRay Report ---
CHEST 1 VIEW INDICATION / CLINICAL INFORMATION: chest pain. FINDINGS: SUPPORT DEVICES: No significant change in position. HEART / MEDIASTINUM: The cardiomediastinal silhouette has not significantly changed in the interim. LUNGS / PLEURA: Development of small, less than 10% right-sided pneumothorax. Chest tube unchanged in position. Signer Name: Bharathi Feldman MD Signed: 08/06/2021 1:11 PM Workstation Name: [id number]
--- NOTE | 2021-08-06 14:53 | Progress Note ---
Assessment and Plan Assessment and plan: I called the [place] transfer center at [phone] and spoke with Papa Nubiafuentes patient information and callback number She said she would request the facesheet from the floor and get back --Right chest tube replacement; Yesterday 08/04/2021, small bore chest tube was removed And [address] [facility] [place] large bore right chest tube was placed by surgeon Dr. Garcia The chest tube is on continuous suction. Patient needs VATS procedure pulmonary recommended to initiate transfer to a facility where thoracic surgery services are available Initiated the transfer process, awaiting response from different centers[[facility], [facility], [facility], [facility]] --Rt. Tension pneumothorax, spontaneous Current Visit: Yes Status: Acute Continue chest tube continuous suction Supportive care --Acute chest pain Current Visit: Yes Status: Acute Resolved --Acute respiratory failure with hypoxia Current Visit: Yes Status: Acute Present on admission due to tension pneumothorax, Now resolved, home O2 evaluation prior to discharge --Pneumonia involving right lung Current Visit: Yes Status: Acute Chest x-ray shows right lung opacity/edema/atelectasis Patient also has leukocytosis Completed total 5 days of Rocephin and Zithromax. --Leukocytosis (leucocytosis) Current Visit: Yes Status: Acute Received 5 days of antibiotics ,resolved -- DVT prophylaxis. Current Visit: Yes Status: Acute Subcutaneous Lovenox Consults and recommendations noted and appreciated We will closely monitor the patient and adjust the management as needed Plan of care reviewed with the patient and her nurse Initiated transfer process Brief history and daily hospital course: 31-year-old female patient was admitted with acute shortness of breath and chest pain noted to have right-sided tension pneumothorax patient received emergency right-sided chest tube placement connected to continuous suction, post chest tube chest x-ray revealed complete expansion of the lung Patient symptoms significantly improved. 07/31/2021; Patient is alert awake oriented very minimal chest pain no shortness of breath Right-sided chest tube in place on continuous suction, pulmonary following Recommend chest tube underwater seal after 24 hours. 08/01/2021; chest tube in place on continuous suction Patient complains of some insomnia, will order some Ambien as needed at night Patient has leukocytosis, opacity on chest x-ray atelectasis/ Will start empiric antibiotic Rocephin and Zithromax, check procalcitonin 08/02/2021; chest tube in place continuous suction Pulmonary following 08/03/2021; patient feels better, chest tube continues suction Chest x-ray requested 08/04/2021; pulmonary considering To request the surgeon to place a large bore chest tube if needed. 08/05/2021 ;24 [place] chest tube was inserted by surgery yesterday Pleurevac connected to -20 cm of water suction. Chest x-ray complete expansion of the lung Follow consultants recommendation 08/06/2021; pulmonary recommended transfer to [facility] Thoracic surgery service are available, initiated with [facility], will stop Await responses, transferred and accepted History Interval history: I have seen and examined the patient at the bedside Patient's chart and medications reviewed Patient has right sided chest tube functional and is in place Patient denies chest pain or shortness of breath Vital signs noted Hospitalist Physical - Constitutional Vitals: Temp Pulse Resp BP Pulse Ox 99.8 F H 106 H 16 117/76 98 08/06/21 11:10 08/06/21 11:10 08/06/21 11:10 08/06/21 11:10 08/06/21 11:10 General appearance: Present: no acute distress, well-nourished, other (Right- sided chest tube under continuous suction) - EENT Eyes: Present: PERRL, EOM intact - Neck Neck: Present: supple, normal ROM - Respiratory Respiratory effort: normal Respiratory: bilateral: diminished, negative: rales, rhonchi, wheezing - Cardiovascular Rhythm: regular Heart Sounds: Present: S1 & S2 - Extremities Extremities: no ischemia, No edema - Abdominal General gastrointestinal: soft, non-tender, non-distended, normal bowel sounds - Integumentary Integumentary: Present: clear, warm - Psychiatric Psychiatric: appropriate mood/affect, cooperative - Neurologic Neurologic: CNII-XII intact, moves all extremities Results - Labs CBC & Chem 7: 08/04/21 14:52 08/01/21 06:00 Labs: Laboratory Last Values WBC 9.4 K/mm3 (4.5-11.0) 08/04/21 14:52 RBC 4.45 M/mm3 (3.65-5.03) 08/04/21 14:52 Hgb 11.0 gm/dl (10.1-14.3) 08/04/21 14:52 Hct 34.2 % (30.3-42.9) 08/04/21 14:52 MCV 77 fl (79-97) L 08/04/21 14:52 MCH 25 pg (28-32) L 08/04/21 14:52 MCHC 32 % (30-34) 08/04/21 14:52 RDW 17.5 % (13.2-15.2) H 08/04/21 14:52 Plt Count 423 K/mm3 (140-440) 08/04/21 14:52 Lymph % (Auto) 17.8 % (13.4-35.0) 08/04/21 14:52 Heard % (Auto) 8.5 % (0.0-7.3) H 08/04/21 14:52 Eos % (Auto) 0.2 % (0.0-4.3) 08/04/21 14:52 Baso % (Auto) 0.2 % (0.0-1.8) 08/04/21 14:52 Lymph # (Auto) 1.7 K/mm3 (1.2-5.4) 08/04/21 14:52 Heard # (Auto) 0.8 K/mm3 (0.0-0.8) 08/04/21 14:52 Eos # (Auto) 0.0 K/mm3 (0.0-0.4) 08/04/21 14:52 Baso # (Auto) 0.0 K/mm3 (0.0-0.1) 08/04/21 14:52 Seg Neutrophils % 73.3 % (40.0-70.0) H 08/04/21 14:52 Seg Neutrophils # 6.9 K/mm3 (1.8-7.7) 08/04/21 14:52 PT 14.2 Sec. (12.2-14.9) 07/31/21 03:19 INR 1.05 (0.87-1.13) 07/31/21 03:19 APTT 30.0 Sec. (24.2-36.6) 07/31/21 03:19 Sodium 140 mmol/L (137-145) 08/01/21 06:00 Potassium 4.0 mmol/L (3.6-5.0) 08/01/21 06:00 Chloride 104.6 mmol/L (98-107) 08/01/21 06:00 Carbon Dioxide 23 mmol/L (22-30) 08/01/21 06:00 Anion Gap 16 mmol/L 08/01/21 06:00 BUN 12 mg/dL (7-17) 08/01/21 06:00 Creatinine 0.8 mg/dL (0.6-1.2) 08/01/21 06:00 Estimated GFR > 60 ml/min 08/01/21 06:00 BUN/Creatinine Ratio 15 % 08/01/21 06:00 Glucose 90 mg/dL (65-100) 08/01/21 06:00 Hemoglobin A1c 5.6 % (4-6) 07/31/21 01:49 Calcium 9.0 mg/dL (8.4-10.2) 08/01/21 06:00 Iron 25 ug/dL (37-170) L 08/04/21 14:51 TIBC 407 mcg/dL (250-450) 08/04/21 14:51 Ferritin 10.4 ng/mL (10.0-200.0) 08/04/21 14:51 Total Bilirubin 0.30 mg/dL (0.1-1.2) 08/01/21 06:00 AST 13 units/L (5-40) 08/01/21 06:00 ALT 8 units/L (7-56) 08/01/21 06:00 Alkaline Phosphatase 65 units/L (35-129) 08/01/21 06:00 Total Protein 7.8 g/dL (6.3-8.2) 08/01/21 06:00 Albumin 3.9 g/dL (3.9-5) 08/01/21 06:00 Albumin/Globulin Ratio 1.0 % 08/01/21 06:00 Procalcitonin 0.54 ng/mL (<0.15) 08/02/21 13:21 HCG, Qual Negative (Negative) 07/31/21 01:49 Urine Color Yellow (Yellow) 07/31/21 Unknown Urine Turbidity Slightly-cloudy (Clear) 07/31/21 Unknown Urine pH 5.0 (5.0-7.0) 07/31/21 Unknown Ur Specific [place] 1.009 (1.003-1.030) 07/31/21 Unknown Urine Protein <15 mg/dl mg/dL (Negative) 07/31/21 Unknown Urine Glucose (UA) Neg mg/dL (Negative) 07/31/21 Unknown Urine Ketones 20 mg/dL (Negative) 07/31/21 Unknown Urine Blood Neg (Negative) 07/31/21 Unknown Urine Nitrite Neg (Negative) 07/31/21 Unknown Urine Bilirubin Neg (Negative) 07/31/21 Unknown Urine Urobilinogen < 2.0 mg/dL (<2.0) 07/31/21 Unknown Ur Leukocyte Esterase Neg (Negative) 07/31/21 Unknown Urine WBC (Auto) 2.0 /HPF (0.0-6.0) 07/31/21 Unknown Urine RBC (Auto) 2.0 /HPF (0.0-6.0) 07/31/21 Unknown U Epithel Cells (Auto) 11.0 /HPF (0-13.0) 07/31/21 Unknown Urine Bacteria (Auto) 1+ /HPF (Negative) 07/31/21 Unknown Urine Mucus Few /HPF 07/31/21 Unknown Green/IV: Voiding Method Bedside Commode Active Medications - Current Medications Current Medications: Generic Name Dose Route Start Last Admin Trade Name Freq PRN Reason Stop Dose Admin Acetaminophen 650 mg 07/31/21 05:19 Acetaminophen 325 Mg Tab PO Q4H PRN Pain MILD(1-3)/Fever >100.5/BOOTHE Al Hydrox/Mg Hydrox/Simethicone 30 ml 07/31/21 05:19 Alum-Mag Hydroxide-Simethicone 104-954-11fv/5ml Oral Liqd 30 Ml PO Q4H PRN Indigestion Enoxaparin Sodium 40 mg 07/31/21 10:00 08/06/21 12:07 Enoxaparin 40 Mg/0.4 Ml Inj SUB-Q 40 mg QDAY GEGE Administration Famotidine 20 mg 07/31/21 10:00 08/06/21 12:07 Famotidine 20 Mg/2 Ml Inj IV 20 mg BID GEGE Administration Magnesium Hydroxide 30 ml 07/31/21 05:19 Magnesium Hydroxide (Mom) Oral Liqd Udc PO Q4H PRN Constipation Metoclopramide HCl 10 mg 07/31/21 05:19 Metoclopramide 10 Mg/2 Ml Inj IV Q6H PRN Nausea And Vomiting Morphine Sulfate 2 mg 07/31/21 05:19 08/04/21 12:50 Morphine 2 Mg/1 Ml Inj IV 2 mg Q4H PRN Administration Pain, Moderate (4-6) Naloxone HCl 0.1 mg 07/31/21 05:19 Naloxone 0.4 Mg/1 Ml Inj IV Q2MIN PRN Res Rate </= 8 or 02 SAT < 92% Ondansetron HCl 4 mg 07/31/21 05:19 Ondansetron 4 Mg/2 Ml Inj IV Q8H PRN Nausea And Vomiting Oxycodone/Acetaminophen 1 tab 07/31/21 05:19 08/05/21 21:19 Oxycodone /Acetaminophen 5-325mg Tab PO 1 tab Q6H PRN Administration Pain, Moderate (4-6) Senna 8.6 mg 07/31/21 05:19 Sennosides 8.6 Mg Tab PO Q12HR PRN Constipation Sodium Chloride 10 ml 07/31/21 10:00 08/06/21 12:07 Sodium Chloride 0.9% 10 Ml Flush Syringe IV 10 ml BID GEGE Administration Zolpidem Tartrate 5 mg 08/01/21 21:00 08/04/21 00:14 Zolpidem 5 Mg Tab PO 5 mg QHS PRN Administration Sleep Nutrition/Malnutrition Assess - Dietary Evaluation Nutrition/Malnutrition Findings: Nutrition Notes Start: 08/01/21 10:31 Freq: Status: Active Protocol: Document 08/03/21 10:51 GB (Rec: 08/03/21 10:57 GB [email or web address]) Nutrition Notes Initial or Follow up Reassessment Current Diagnosis Respiratory Failure Other Pertinent Diagnosis tension pneumothorax, chest pain, SOB, pneu Current Diet regular w/ensure enlive BID Labs/Tests No new labs from last assessment Pertinent Medications reviewed Height 5 ft 9 in Weight 85.8 kg [place] Body Weight (kg) 65.90 BMI 27.9 Weight change and time frame 07/31: 79.379kg 08/03: 85.8kg Change: +6.421kg for +8% significant gain Weight Status Overweight Subjective/Other Information Per chart po intake of meals are 75% or greater. This meets 80% or greater of estimated energy needs. Positive weight gain in past week. Percent of energy/protein needs met: 80% or greater Burn Absent Trauma Absent GI Symptoms None Food Allergy No Current % PO Good (75-100%) Minimum of two criteria No #1 Nutrition Diagnosis Inadequate oral intake Comments: 08/03: po intake recorded at 75 % or greater Etiology acute illness As Evidenced by Signs and Symptoms pt eating <25% of meals Diagnosis Progress(for reassessment Resolved documentation) Is patient on ventilator? No Is Patient Ambulatory and/or Out of Bed Yes REE-([place]-St. Jeor-ambulatory/OOB) [ 2122.094 [id number]] Kcal/Kg value to use for calculation 25 Approximate Energy Requirements Using 2145 kcal/Kg Calculation Used for Recommendations Kcal/kg Additional Notes RD to sign off. Nutrition Intervention Change Diet Order: continue Add Supplement/Snack (indicate name/kcal Ensure Enlive BID (08/03: /protein ) continue) Provides kCal: 700 Provides Protein (gm) 40 Goal #1 PO intake of meals to be 75% or greater TID daily for LOS Goal #2 PO intake of nutritional supplements to be 75% or greater BID daily for LOS Goal #3 Weight to maintain within +/-3 % current weight for LOS Revisit per MD consult or patient Sign Off request:
--- NOTE | 2021-08-06 15:07 | Event Note ---
Date: 08/06/21 31-year-old female patient with recurrent pneumothorax, complaint inspector Dr. Snyder recommended transfer to a facility where cardiothoracic services are available for possible VATS procedure. 1.I have called [facility] transfer center at [phone] and spoke with Tim regarding transfer under the service of Cardiothoracic surgeon for VATS procedure for persistent pneumothorax . He reports that [facility] and [facility] are in full capacity. However he took the patient's information and the callback number and requested for facesheet fax #[phone] I informed the charge nurse Ms Alaniz to fax the face sheet. 2.I called [facility] at [phone] and spoke with the nurse Ms Ramachandran, she reported that [facility] is on diversion 3.I called [place] transfer center at [phone] and spoke with Ms. Delacruz, gave patient information and callback number She said she would request the facesheet from the floor and get back 4.I called [facility] at [phone] and spoke with transfer center nurse Ms. Rosas, she reports that they are in full capacity She will get a facesheet and call back if any bed availability. We will continue to follow and wait for the response from these hospitals.
--- NOTE | 2021-08-06 19:13 | Event Note ---
Date: 08/06/21 [facility] transfer center nurse Ms. Delacruz called and reported that Dr. Snyder contacted the CT surgeon who accepted the patient However transfers will not happen today , advised to call back after the Covid test is reported . Covid test is ordered, will sign off to the coming hospitalist to check the report and call back [facility] Plan of care reviewed with the patient and the patient's nurse. Patient agrees with transfer plan.
[2021-08-06] MEDS: ZOLPIDEM 5 MG TAB PO PRN (21:46)
--- NOTE | 2021-08-07 08:59 | Event Note ---
Date: 08/07/[address] Fred Starr, thoracic Surgeon at [facility] on yesterday who has agreed to accept the patient pending bed availability. COVID test pending but should be back later this afternoon. [facility] bed available later today as patient is stable for transfer. Patient should remain on continuous suction. Offered to accept patient back to hospital and [facility] states they will let me know.
[2021-08-07] MEDS: ENOXAPARIN 40 MG/0.4 ML INJ SUB-Q SCH (11:37)
[2021-08-07] MEDS: FAMOTIDINE 20 MG/2 ML INJ IV SCH ×2 (11:37→22:43)
--- NOTE | 2021-08-07 15:11 | Progress Note ---
Assessment and Plan --Right chest tube replacement; On 08/04/2021, small bore chest tube was removed And 24 [place] large bore right chest tube was placed by surgeon Dr. Garcia. The chest tube is on continuous suction. Patient needs VATS procedure pulmonary recommended to initiate transfer to a facility where thoracic surgery services are available Initiated the transfer process, awaiting response from different centers[[facility], [facility], [facility], [facility]] --Rt. Tension pneumothorax, spontaneous Current Visit: Yes Status: Acute Continue chest tube continuous suction Supportive care --Acute chest pain Current Visit: Yes Status: Acute Resolved --Acute respiratory failure with hypoxia Current Visit: Yes Status: Acute Present on admission due to tension pneumothorax, Now resolved, home O2 evaluation prior to discharge --Pneumonia involving right lung Current Visit: Yes Status: Acute Chest x-ray shows right lung opacity/edema/atelectasis Patient also has leukocytosis Completed total 5 days of Rocephin and Zithromax. --Leukocytosis (leucocytosis) Current Visit: Yes Status: Acute Received 5 days of antibiotics ,resolved -- DVT prophylaxis. Current Visit: Yes Status: Acute Subcutaneous Lovenox Consults and recommendations noted and appreciated We will closely monitor the patient and adjust the management as needed Plan of care reviewed with the patient and her nurse Initiated transfer process Brief history and daily hospital course: 31-year-old female patient was admitted with acute shortness of breath and chest pain noted to have right-sided tension pneumothorax patient received emergency right-sided chest tube placement connected to continuous suction, post chest tube chest x-ray revealed complete expansion of the lung Patient symptoms significantly improved. 07/31/2021; Patient is alert awake oriented very minimal chest pain no shortness of breath Right-sided chest tube in place on continuous suction, pulmonary following Recommend chest tube underwater seal after 24 hours. 08/01/2021; chest tube in place on continuous suction Patient complains of some insomnia, will order some Ambien as needed at night Patient has leukocytosis, opacity on chest x-ray atelectasis/ Will start empiric antibiotic Rocephin and Zithromax, check procalcitonin 08/02/2021; chest tube in place continuous suction Pulmonary following 08/03/2021; patient feels better, chest tube continues suction Chest x-ray requested 08/04/2021; pulmonary considering To request the surgeon to place a large bore chest tube if needed. 08/05/2021 ;24 [place] chest tube was inserted by surgery yesterday Pleurevac connected to -20 cm of water suction. Chest x-ray complete expansion of the lung Follow consultants recommendation 08/06/2021; pulmonary recommended transfer to tertiary [facility] Thoracic surgery service are available, initiated with [facility], will stop Await responses, transferred and accepted 08/07/21: Pending transfer to [place], Covid test is negative. Spoke with [facility] transfer center -right now they do not have any available bed. But patient is accepted for transfer. Subjective Date of service: 08/07/21 Interval history: Patient seen and examined. Medical records and medication list reviewed. No acute event overnight noted by the RN. Patient on chest tube suction on the right side. Patient is tolerating diet. Discussed plan of care at bedside with patient. Objective - Exam Narrative Exam: GENERAL: well-developed and well-nourished AAF lying on bed appeared to be in no discomfort. HEENT: Normocephalic. Atraumatic. No conjunctival congestion or icterus. Patient has moist mucous membranes. NECK: Supple. Trachea midline. CHEST/LUNGS: Right-sided chest tube in place, breathing nonlabored. No wheezes crackles or rhonchi. HEART/CARDIOVASCULAR: Regular in rate and rhythm. S1 and S2 positive. ABDOMEN: Abdomen is soft, nontender. Patient has normal bowel sounds. SKIN: There is no rash. Warm and dry. NEURO: No focal motor deficit. Follows command. MUSCULOSKELETAL: No joint effusion or tenderness. EXTRIMITY: No edema, no cyanosis or clubbing. PSYCH: Cooperative. - Constitutional Vitals: Vital Signs - 12hr 08/07/21 08/07/21 04:43 13:10 Temperature 98.3 F 98.2 F Pulse Rate 96 H 114 H Respiratory 24 18 Rate Blood Pressure 126/79 124/76 O2 Sat by Pulse 97 96 Oximetry - Labs CBC & Chem 7: 08/04/21 14:52 08/01/21 06:00
[2021-08-07] MEDS: ZOLPIDEM 5 MG TAB PO PRN (22:43)
[2021-08-08] MEDS: ENOXAPARIN 40 MG/0.4 ML INJ SUB-Q SCH (09:45)
[2021-08-08] MEDS: oxyCODONE /ACETAMINOPHEN 5-325MG TAB PO PRN (09:45)
[2021-08-08] MEDS: FAMOTIDINE 20 MG/2 ML INJ IV SCH (09:45)
--- NOTE | 2021-08-08 13:24 | Event Note ---
Date: 08/08/21 COVID negative. Still no bed available at [place]. Continue chest tube to suction. If patient is still here tomorrow, will try on water seal again.
--- NOTE | 2021-08-08 16:06 | Progress Note ---
Assessment and Plan --Right chest tube replacement; ON 08/04/2021, small bore chest tube was removed And 24 [place] large bore right chest tube was placed by surgeon Dr. Garcia. The chest tube is on continuous suction. Patient needs VATS procedure pulmonary recommended to initiate transfer to a facility where thoracic surgery services are available Initiated the transfer process, awaiting response from different centers[[place], [facility], [facility], [facility]] --Rt. Tension pneumothorax, spontaneous Current Visit: Yes Status: Acute Continue chest tube continuous suction Supportive care --Acute chest pain Current Visit: Yes Status: Acute Resolved --Acute respiratory failure with hypoxia Current Visit: Yes Status: Acute Present on admission due to tension pneumothorax, Now resolved, home O2 evaluation prior to discharge --Pneumonia involving right lung Current Visit: Yes Status: Acute Chest x-ray shows right lung opacity/edema/atelectasis Patient also has leukocytosis Completed total 5 days of Rocephin and Zithromax. --Leukocytosis (leucocytosis) Current Visit: Yes Status: Acute Received 5 days of antibiotics ,resolved -- DVT prophylaxis. Current Visit: Yes Status: Acute Subcutaneous Lovenox Consults and recommendations noted and appreciated We will closely monitor the patient and adjust the management as needed Plan of care reviewed with the patient and her nurse Initiated transfer process Brief history and daily hospital course: 31-year-old female patient was admitted with acute shortness of breath and chest pain noted to have right-sided tension pneumothorax patient received emergency right-sided chest tube placement connected to continuous suction, post chest tube chest x-ray revealed complete expansion of the lung Patient symptoms significantly improved. 07/31/2021; Patient is alert awake oriented very minimal chest pain no shortness of breath Right-sided chest tube in place on continuous suction, pulmonary following Recommend chest tube underwater seal after 24 hours. 08/01/2021; chest tube in place on continuous suction Patient complains of some insomnia, will order some Ambien as needed at night Patient has leukocytosis, opacity on chest x-ray atelectasis/ Will start empiric antibiotic Rocephin and Zithromax, check procalcitonin 08/02/2021; chest tube in place continuous suction Pulmonary following 08/03/2021; patient feels better, chest tube continues suction Chest x-ray requested 08/04/2021; pulmonary considering To request the surgeon to place a large bore chest tube if needed. 08/05/2021 ;24 [place] chest tube was inserted by surgery yesterday Pleurevac connected to -20 cm of water suction. Chest x-ray complete expansion of the lung Follow consultants recommendation 08/06/2021; pulmonary recommended transfer to tertiary [facility] Thoracic surgery service are available, initiated with [facility], will stop Await responses, transferred and accepted 08/07/21: Pending transfer to [place], Covid test is negative. Spoke with [place] transfer center -right now they do not have any available bed. But patient is accepted for transfer. 08/08/21: Still no bed available at [place]. Continue chest tube to suction. If patient is still here tomorrow, will try on water seal again. Subjective Date of service: 08/08/21 Interval history: Patient seen and examined. Medical records and medication list reviewed. No acute event overnight noted by the RN. Patient remains on chest tube suction on the right side. Patient is tolerating diet. Discussed plan of care at bedside with patient. Objective - Exam Narrative Exam: GENERAL: well-developed and well-nourished AAF lying on bed appeared to be in no discomfort. HEENT: Normocephalic. Atraumatic. No conjunctival congestion or icterus. Patient has moist mucous membranes. NECK: Supple. Trachea midline. CHEST/LUNGS: Right-sided chest tube in place, breathing nonlabored. No wheezes crackles or rhonchi. HEART/CARDIOVASCULAR: Regular in rate and rhythm. S1 and S2 positive. ABDOMEN: Abdomen is soft, nontender. Patient has normal bowel sounds. SKIN: There is no rash. Warm and dry. NEURO: No focal motor deficit. Follows command. MUSCULOSKELETAL: No joint effusion or tenderness. EXTRIMITY: No edema, no cyanosis or clubbing. PSYCH: Cooperative. - Constitutional Vitals: Vital Signs - 12hr 08/08/21 08/08/21 06:40 11:02 Temperature 98.2 F 98.3 F Pulse Rate 95 H 90 Respiratory 18 18 Rate Blood Pressure 121/76 111/69 O2 Sat by Pulse 99 100 Oximetry - Labs CBC & Chem 7: 08/04/21 14:52 08/01/21 06:00
[2021-08-08 18:39] VITALS: BP 116/70
--- NOTE | 2021-08-13 12:11 | Discharge Summary ---
Providers - Providers Date of Admission: 07/31/21 03:49 Date of discharge: 08/08/21 Attending physician: SONIA AGUILA 07/31/21 05:19 Consult to Physician [CONS] Stat Comment: Consulting Provider: NATHANIEL MOCTEZUMA Physician Instructions: Reason For Exam: shortness of breath 08/04/21 12:08 Consult to Physician [CONS] Routine Comment: Consulting Provider: HENRY GARCIA Physician Instructions: Reason For Exam: Persistent Pneumothorax Primary care physician: EMBROIDERER HAND Hospitalization Condition: Stable Hospital course: Brief history: 31-year-old female patient was admitted with acute shortness of breath and chest pain noted to have right-sided tension pneumothorax patient received emergency right-sided chest tube placement connected to continuous suction, post chest tube chest x-ray revealed complete expansion of the lung Patient symptoms significantly improved but not completely resolved. Pulmonary the room commented VATS procedure, patient was transferred to [place] for higher level of care. Daily hospital course: 07/31/2021; Patient is alert awake oriented very minimal chest pain no shortness of breath Right-sided chest tube in place on continuous suction, pulmonary following Recommend chest tube underwater seal after 24 hours. 08/01/2021; chest tube in place on continuous suction Patient complains of some insomnia, will order some Ambien as needed at night Patient has leukocytosis, opacity on chest x-ray atelectasis/ Will start empiric antibiotic Rocephin and Zithromax, check procalcitonin 08/02/2021; chest tube in place continuous suction Pulmonary following 08/03/2021; patient feels better, chest tube continues suction Chest x-ray requested 08/04/2021; pulmonary considering To request the surgeon to place a large bore chest tube if needed. 08/05/2021 ;24 Moldovan chest tube was inserted by surgery yesterday Pleurevac connected to -20 cm of water suction. Chest x-ray complete expansion of the lung Follow consultants recommendation 08/06/2021; pulmonary recommended transfer to tertiary level care hospital Thoracic surgery service are available, initiated with [facility], will stop Await responses, transferred and accepted 08/07/21: Pending transfer to [place], Covid test is negative. Spoke with [place] transfer center -right now they do not have any available bed. But patient is accepted for transfer. 08/08/21: Continue chest tube to suction. Patient accepted to [place] and possible transfer later today. Continue to do supportive care. Assessment and plan: --Rt. Tension pneumothorax, spontaneous Status post Moldovan large bore right chest tube was placed by surgeon Dr. Garcia The chest tube is on continuous suction. Patient needs VATS procedure Continue chest tube continuous suction --Acute chest pain, due to tension pneumothorax Resolved --Acute respiratory failure with hypoxia Present on admission due to tension pneumothorax, Now resolved, home O2 evaluation prior to discharge --Pneumonia involving right lung Chest x-ray shows right lung opacity/edema/atelectasis Patient also has leukocytosis Completed total 5 days of Rocephin and Zithromax. --Leukocytosis (leucocytosis) Received 5 days of antibiotics ,resolved -- DVT prophylaxis. Disposition: 02 [facility] Final Discharge Diagnosis (Prints w/discharge instructions): --Right spontaneous tension pneumothorax. --Acute chest pain due to pneumothorax. --Acute hypoxic respiratory failure due to pneumothorax and pneumonia. --Pneumonia involving right lung. ----Leukocytosis (leucocytosis) likely SIRS Time spent for discharge: 34 minutes Core Measure Documentation - Palliative Care Palliative Care/ Comfort Measures: Not Applicable - Core Measures Any of the following diagnoses?: none Exam - Constitutional Vitals: Temp Pulse Resp BP Pulse Ox 99.0 F 98 H 18 116/70 99 08/08/21 15:40 08/08/21 15:40 08/08/21 15:40 08/08/21 15:40 08/08/21 15:40 Plan Follow up with: DEBORA ALEXANDRE MD [Primary Care Provider] - 7 Days
== END 2021-08-08 19:34 | disposition short-term general hospital (02) | DRG 199 ==
LOC: ED 00:32 → 4A 03:49 → 3A 16:39
PROVIDERS: ADMIT Hospitalist; ATTEND Internal Medicine
PROC: 0W9930Z Drainage of Right Pleural Cavity with Drainage Device, Percutaneous Approach (ICD-10-PCS; principal; 2021-07-31)
PROC: 0W9930Z Drainage of Right Pleural Cavity with Drainage Device, Percutaneous Approach (ICD-10-PCS; 2021-08-04)
DX: J93.0 Spontaneous tension pneumothorax (principal); J18.9 Pneumonia, unspecified organism; J96.01 Acute respiratory failure with hypoxia; Z20.822 Contact with and (suspected) exposure to COVID-19; D72.829 Elevated white blood cell count, unspecified
CPT/HCPCS: 36415; 71045; 71046; 80048; 80053; 81001; 82728; 83036; 83550; 84145; 84703; 85025; 85610; 85730; 87040; 87086; G0378; J0456; J0696; J1650; J2060; J2250; J2270; J2405; J7030; U0003